=== PATIENT | female | born 1990 | race Caucasian/White ===

== ENCOUNTER 2025-02-11 19:47 | Inpatient (IN) | payer OTHER, MEDICAID, SELFPAY ==
--- OUTSIDE RECORDS SUMMARY | 2025-02-11 19:23 | XMS RPT_ITS | CCD ---
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 Name Role Phone Unavailable Primary Care Provider Unavailabl e NO FAMILY PHYSICIAN, 837 Primary Care Unavail able NO FAMILY PHYSICIAN, 837 Primary Care Unavail able NO FAMILY PHYSICIAN, 837 Primary Care Unavail able NO FAMILY PHYSICIAN, 837 Primary Care Unavail able NO FAMILY PHYSICIAN, 837 Primary Care Unavail able NO FAMILY PHYSICIAN, 837 Primary Care Unavail able NO FAMILY PHYSICIAN, 837 Primary Care Unavail able NO FAMILY PHYSICIAN, 837 Primary Care Unavail able NO FAMILY PHYSICIAN, 837 Primary Care Unavail able NO FAMILY PHYSICIAN, 837 Primary Care Unavail able NO FAMILY PHYSICIAN, 837 Primary Care Unavail able NO FAMILY PHYSICIAN, 837 Primary Care Unavail able NO FAMILY PHYSICIAN, 837 Primary Care Unavail able NO FAMILY PHYSICIAN, 837 Primary Care Unavail able Care Physician, No Primary Primary Care Unava ilable Disha Martines Admitting Unavail able Disha Martines Attending Unavail able Disha Martines Referring Unavail able SANA ALMODOVAR Attending Unavailable SANA ALMODOVAR Referring Unavailable DISHA PURCELL Attending Unavail able SELF Referring Unavailable CHRISTINA TAVAREZ Attending Unavailable SELF Referring Unavailable MAICOL ACUNA Attending Unavailable SANA ALMODOAVR Referring Unavailable Medications Current Medications Medication Drug Class(es) Dates Sig (Normalized) Sig (Original) Calcium Carbonate (2 sources) take 1 tablet by davon th once daily CALCIUM CARBONATE (CALCIUM 300 ORAL) Take 1 tablet by mouth once daily. Active MULTIVITAMIN/IRON/FOL IC ACID (MULTI-JOHN ORAL) (2 sources) take 1 tablet by davon th once daily MULTIVITAMIN/IRON/FO LIC ACID (MULTI-JOHN ORAL) Take 1 tablet by mouth once daily. Active Problems Active Problems Problem Classification Problem Date Documented Date Episodic/Chronic Anxiety disorders (1 source) Generalized anxiety disorder; Translations: [EDUARDO (generalized anxiety disorder)] Onset: 01-18-2025 Chronic Other complications of (1 source) Supervision of high risk due to social problems, third trimester; Translations: [Supervision of high risk due to social problems, third trimester (HCC)] Onset: 01-18-2025 Episodic Other and delivery including normal (1 source) Encounter for supervision of normal , unspecified, third trimester; Translations: [ with care elsewhere in third trimester ([facility])] Onset: 01-18-2025 Episodic Residual codes; unclassified (1 source) 38 weeks gestation of ; Translations: [38 weeks gestation of ([facility])] Onset: 02-07-2025 Episodic Residual codes; unclassified (1 source) 37 weeks gestation of ; Translations: [37 weeks gestation of ([facility])] Onset: 02-02-2025 Episodic Residual codes; unclassified (1 source) 36 weeks gestation of ; Translations: [36 weeks gestation of ([facility])] Onset: 01-15-2025 Episodic Residual codes; unclassified (1 source) Other specified postprocedural states; Translations: [History of cone biopsy of cervix] Onset: 01-15-2025 Episodic Sexually transmitted infections (not HIV or hepatitis) (1 source) Cervical high risk human papillomavirus (HPV) DNA test positive; Translations: [Human papillomavirus (HPV) type 18 DNA detected in cervical specimen] Onset: 01-15-2025 Episodic Past or Other Problems Problem Classification Problem Date Documented Da te Episodic/Chronic Residual codes; unclassified (2 sources) Kidney donor; Translations: [Kidney donors] Onset: 07-23-2013 07-23-2013 Episodic Results Test Name Value Interpretation Reference Range Facil courtney Blanc 02-09-2025 EVELYNE Telephone (SILVIANOGY) GIANNI BENTLEY ([id number]) 1990 F Date Time Provider Department 02/09/25 PLOTTS, RANDA OBGYWM During your visit today, we recorded the following information about you: Delores Leblanc RN 02/09/2025 10:12 AM Signed OB US reviewed. Results: There is unilateral left urinary tract dilation Recommendation is a follow up renal ultrasound. Please add report to patient's chart. Randa Valle APRN.Randa Kessler APRN.CNM 02/09/2025 11:11 AM Signed Yes per Paloma Marquez. FADY Banerjee Lindsey, RN 02/09/2025 11:20 AM Signed Patient previously notified of results at time of her appointment. Renal ultrasound will be done after baby is born. Delores Leblanc RN Allergies As of Date: 02/09/2025 (No Known Allergies) Date Reviewed: 02/07/2025 Reviewed by: Yareli Velazquez MA - Fully Assessed Reason for Visit: Results [95] Prescriptions as of 02/09/2025 - esomeprazole (NEXIUM) 20 mg capsule TAKE ONE CAPSULE BY MOUTH ONCE DAILY AT 6am - BABY ASPIRIN ORAL Take 2 tablets by mouth once daily. - calcium Carbonate 300 mg, 750mg, (TUMS) 300 mg (750 mg) chewable tablet Take 1 tablet by mouth as needed. - MULTIVITAMIN/IRON/FOL IC ACID (MULTI-JOHN ORAL) Take 1 tablet by mouth once daily. 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] 07/23/2013 Supervision of high risk due to socia*01/15/2025 History of cone biopsy of cervix [Z98.890] 01/15/2025 EDUARDO (generalized anxiety disorder) [F41.1] 01/15/2025 IBS (irritable bowel syndrome) [K58.9] 01/15/2025 36 weeks gestation of (HCC) [Z3A.36] 01/15/2025 with care elsewhere in [facility]*01/15/2025 Human papillomavirus (HPV) type 18 DNA detected*01/15/2025 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] 02/09/2025 02/09/2025 Pyelectasis of fetus on ultrasound (*02/09/2025 Encounter Status:Closed by DELORES LEBLANC on 02/09/25 Normal [facility] ROUTINE, GROUP B ST REPTOCOCCUS BY PCRon 01-15-2025 ROUTINE, GROUP B STREPTOCOCCUS BY PCR Not detected Normal [facility] Comment on above: Performed By: #### G BPCR #### [facility] CLIA [id number] [address] [place] [address] CNPNon 12-20-2024 CNPN Telephone (OBGYWM) GIANNI BENTLEY ([id number]) 1990 F Date Time Provider Department 12/20/24 SANA ALMODOVAR During your visit today, we recorded the following information about you: Estelita Torres RN 12/20/2024 12:21 PM Signed Records received from [facility] in [place]. Sent to medical records to scan into [employer] for upcoming NOB on 01/15. Allergies As of Date: 12/20/2024 (No Known Allergies) Date Reviewed: 07/13/2013 Reviewed by: Laura Prado Ma - Fully Assessed Reason for Visit: Received Outside Medical Records [4596] Prescriptions as of 12/20/2024 - MULTIVITAMIN/IRON/FOL IC ACID (MULTI-JOHN ORAL) Take 1 tablet by mouth once daily. - CALCIUM CARBONATE (CALCIUM 300 ORAL) Take 1 tablet by mouth once daily. 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] 07/23/2013 Encounter Status:Closed by ESTELITA TORRES on 12/20/24 Normal [facility] RPRon 11-29-2024 Reagin Ab RPR Ql (S) Non-Reactive Normal Non Reactive [facility] Comment on above: Order Comment: Order ed on Fin# [id number] Performed By: #### 1 [id number] #### [facility] [address] [place] [address] Shift Nurse Manager: Isac Chavarria MD AUTO DIFFon 11-27-2024 Baso Count 0.02 x1000 Normal 0.00-0.20 [facility] Comment on above: Performed By: #### 6 [id number], [id number], [id number] #### [facility] [address] [place] [address] 75567 Shift Nurse Manager: Isac Chavarria MD Basos % 0.2 % Normal [facility] Comment on above: Performed By: #### 6 [id number], [id number], [id number] #### [facility] [address] [place], [place] [phone] Shift Nurse Manager: Isac Chavarria MD Eos Count 0.10 x1000 Normal 0.00-0.50 [facility] Comment on above: Performed By: #### 6 [id number], [id number], [id number] #### [facility] [address] [place] [address] 20473 Shift Nurse Manager: Isac Chavarria MD Eosinophils/100 WBC (Bld) 0.8 % Normal [facility] Comment on above: Performed By: #### 6 [id number], [id number], [id number] #### [facility] [address] [place], [place] [phone] Shift Nurse Manager: Isac Chavarria MD Lymph Count 2.02 x1000 Normal 1.20-4.80 [facility] Comment on above: Performed By: #### 6 [id number], [id number], [id number] #### [facility] [address] [place] [address] 52045 Shift Nurse Manager: Isac Chavarria MD Lymphocytes/100 WBC (Bld) 17.6 % Normal [facility] Comment on above: Performed By: #### 6 145189, 048569, [id number] #### [facility] [address] [place] [address] 43998 Shift Nurse Manager: Isac Chavarria MD Lincoln Count 0.88 x1000 Normal 0.10-1.00 [facility] Comment on above: Performed By: #### 6 [id number], 665736, [id number] #### [facility] [address] [place] [address] 75811 Shift Nurse Manager: Isac Chavarria MD Monocytes/100 WBC (Bld) 7.6 % Normal [facility] Comment on above: Performed By: #### 6 514402, [id number], [id number] #### [facility] [address] [place] [address] 67881 Shift Nurse Manager: Isac Chavarria MD Neutrophil Count (ANC) 8.43 x1000 Normal 1.40-8.80 [facility] Comment on above: Performed By: #### 6 790208, 231003, [id number] #### [facility] [address] [place] [address] 42604 Shift Nurse Manager: Isac Chavarria MD Neutrophils/100 WBC (Bld) 73.7 % Normal [facility] Comment on above: Performed By: #### 6 [id number], 317026, [id number] #### [facility] [address] [place] [address] 57966 Shift Nurse Manager: Isac Chavarria MD GGLU 1HRPCon 11-27-2024 1 HR [place]a Gestational Glucose 67 mg/dL Low 120-135 [facility] Comment on above: Order Comment: Order ed on [facility]# [id number] Result Comment: Susan puncture should occur prior to sulfasalazine administration due to the potential for falsely depressed results. Venipuncture should occur prior to sulfapyridine administration due to the potential falsely elevated results. Baseline assay values before administration of sulfasalazine and sulfapyridine therapy would not be affected. Performed By: #### 6 [id number], [id number], [id number] #### [facility] [address] [place] [address] 16129 Shift Nurse Manager: Isac Chavarria MD HEMOon 11-27-2024 DIFF? No Normal [facility] Comment on above: Performed By: #### 6 573290, 226765, [id number] #### [facility] [address] [place] [address] 66226 Shift Nurse Manager: Isac Chavarria MD Erythrocyte distribution width (RBC) [Ratio] 13.4 % Normal 11.5-14.5 [facility] Comment on above: Performed By: #### 6 359317, 778071, [id number] #### [facility] [address] [place] [address] 31541 Shift Nurse Manager: Isac Chavarria MD Hematocrit (Bld) [Volume fraction] 37.3 % Normal 36.0-46.0 [facility] Comment on above: Performed By: #### 6 627881, 301110, [id number] #### [facility] [address] [place] [address] 78924 Shift Nurse Manager: Isac Chavarria MD Hemoglobin (Bld) [Mass/Vol] 12.5 g/dL Normal 12.0-16.0 [facility] Comment on above: Performed By: #### 6 480018, 893008, [id number] #### [facility] [address] [place] [address] 36583 Shift Nurse Manager: Isac Chavarria MD Instr WBC 11.4 Normal [facility] Comment on above: Performed By: #### 6 606596, 007954, 2294382 #### [facility] [address] [place] [address] 52952 Shift Nurse Manager: Isac Chavarria MD MCH (RBC) [Entitic mass] 31.5 pg Normal 27.0-34.0 [facility] Comment on above: Performed By: #### 6 892277, 183595, 7010151 #### [facility] [address] [place] [address] 90108 Shift Nurse Manager: Isac Chavarria MD MCHC (RBC) [Mass/Vol] 33.5 g/dL Normal 32.0-37.0 [facility] Comment on above: Performed By: #### 6 221049, 856731, 5846773 #### [facility] [address] [place] [address] 29456 Shift Nurse Manager: Isac Chavarria MD MCV (RBC) [Entitic vol] 94.3 fL Normal 80.0-100.0 [facility] Comment on above: Performed By: #### 6 840543, 494100, [id number] #### [facility] [address] [place] [address] 10403 Shift Nurse Manager: Isac Chavarria MD Nucleated RBC 0 /100WBC Normal [facility] Comment on above: Performed By: #### 6 586042, 315844, [id number] #### [facility] [address] [place] [address] 44887 Shift Nurse Manager: Isac Chavarria MD Platelet 342 x10 Normal 150-450 [facility] Comment on above: Performed By: #### 6 655105, 491908, [id number] #### [facility] [address] [place] [address] 90628 Shift Nurse Manager: Isac Chavarria MD Platelet mean volume (Bld) [Entitic vol] 8.7 fL Normal 7.4-10.4 [facility] Comment on above: Performed By: #### 6 752919, 572746, [id number] #### [facility] [address] [place] [address] 59800 Shift Nurse Manager: Isac Chavarria MD RBC 3.96 x10 Low 4.20-5.40 [facility] Comment on above: Result Comment: Note : RBC morphology is normal unless otherwise stated. Evaluation performed only if differential is requested. Performed By: #### 6 068168, 724679, [id number] #### [facility] [address] [place] [address] 14832 Shift Nurse Manager: Isac Chavarria MD WBC 11.4 x10 High 4.5-11.0 [facility] Comment on above: Performed By: #### 6 352245, 205570, [id number] #### [facility] [address] [place] [address] Shift Nurse Manager: MD Jayashree Wu 11-03-2024 CNPN Telephone (OBGYWM) GIANNI BENTLEY ([id number]) 1990 F Date Time Provider Department 11/03/24 SELF OBGYWM During your visit today, we recorded the following information about you: Radha Saunders 11/03/2024 12:51 PM Signed Patient is 6 months and would like to transfer her OB care of to [place]. She is currently a patient at [facility] in [place]. Please review and advise. Radha Saunders November 03, 2024 12:51 PM Claudia Fregoso RN 11/03/2024 1:19 PM Signed Call placed to patient to triage for new OB appt. Name and verified. Patient wishes to transfer to [facility] for OB care. NAEL? 02/15/2025 Gestational age? 25w1d Patient aware to sign up for My Chart so she can receive the residential care officer messages. What facility is she transferring from? [facility] in [place] When was her last office visit or will be the last visit with the current facility? 10/26 Does patient have records she is bringing with her? Patient will have the records faxed will need number. Any current pelvic pain/vaginal bleeding or any medical concerns that affect the ? no Has patient tested + for GDM or HTN with this ? Patient not had glucose yet, BP WNL Have you had your anatomy scan? WNL apart from small amount of extra fluid around kidney which she was told was common with boys. Which office/provider would the patient like to establish in? [facility] Will route this encounter to the desired office. Delores Leblanc RN 11/03/2024 2:02 PM Signed PSS: Please contact patient to schedule New OB visit. Will need to be scheduled with base loader or doctor. Thank you. DANIELLE Dumas Jennifer, RN 11/09/2024 1:52 PM Signed Patient has appt - closing encounter. 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 - CALCIUM CARBONATE (CALCIUM 300 ORAL) Take 1 tablet by mouth once daily. 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 View: Sufficient ========= Pedro . Number of fetuses: 1 Dating ====== Date Details Gest. age NAEL LMP 05/05/2024 21 w + 5 d 02/09/2025 U/S 10/04/2024 based upon AC, BPD, Femur, HC 21 w + 2 d 02/12/2025 Assigned dating based on ultrasound (CRL), selected on 08/08/2024 20 w + 6 d 02/15/2025 General Evaluation Cardiac activity present. FHR 152 bpm. movements: visualized. Presentation: Variable mostly Breech Placenta: Placental site: posterior G1 Umbilical cord: Cord vessels: 3 vessel cord, normal insertion. Insertion site: normal insertion Amniotic fluid: Amount of AF: normal amount. MVP 4.8 cm. IMELDA 17.9 cm. Q1 4.6 cm, Q2 4.8 cm, Q3 4.4 cm, Q4 4.2 cm Biometry BPD 51.3 mm 21w 4d 76% Hadlock OFD 67.6 mm 22w 5d 95% Tye HC 190.6 mm 21w 2d 62% Hadlock Cerebellum tr 22.4 mm 81% [place] Nuchal fold 2.7 mm AC 170.1 mm 22w 0d 79% Hadlock Femur 33.5 mm 20w 3d 29% Hadlock HC / AC 1.12 26% Hadlock Weight Calculation: EFW 416 g 21w 1d 70% Hadlock EFW (lb,oz) 0 lb 15 oz EFW by Hadlock ([id number]) Head / Face / Neck Biometry: Cephalic index 0.76 21% Nicolaides Public Relations Studies Director 4.1 mm CM 2.9 mm 2% Nicolaides Extremities / Bony Struc Biometry: FL / BPD 0.65 5% Hadlock FL / HC 0.18 13% Hadlock FL / AC 0.20 3% Hadlock Anatomy Abdomen Right kidney: 4 mm , pyelectasis Left kidney: 6 mm , pyelectasis The following structures appear normal: Head / Neck Cranium. Lateral ventricles. Choroid plexus. Midline falx. Cavum septi pellucidi. Cerebellum. Cisterna magna. Thalami. Neck. Face Lips. Profile. Nose. Palate. Orbits. Heart / Thorax 4-chamber view. RVOT view. LVOT view. 3-vessel view. 9-swdtju-bgghmkx view. Situs. Aortic arch view. Ductal arch view. Cardiac position. Cardiac axis. Cardiac rhythm. Diaphragm. Abdomen Abdom. wall. Cord insertion. Stomach. Bladder. Right renal artery. Left renal artery. Genitals. Spine Cervical spine. Thoracic spine. Lumbar spine. Sacral spine. Extremities / Skeleton Arms. Right arm. Right upper arm. Right forearm. Right hand. Left arm. Left upper arm. Left forearm. Left hand. Legs. Right leg. Right upper leg. Right lower leg. Left leg. Left upper leg. Left lower leg. The following structures were visualized: Extremities / Skeleton Right foot. Left foot. sex: male. Maternal Structures Cervix Visualized Approach - Transvaginal: Cervical length 40.9 mm IMPRESSION: There is a single live intrauterine gestation with appropriate interval growth. biometry is appropriate for gestational age. There is mild dilatation of the renal collecting system bilaterally greater on the left 6 mm. This can be followed up later in . Other Visualized anatomic structures as described above show no evidence of major anomalies; however, ultrasound imaging is inherently limited in exclusion of all anomalies. Electronically signed by: Selena Tarango MD 10/05/2024 05:21 PM EDT [facility] Comment on above: Order Comment: Order ed on [facility]# [id number] Result Comment: Tech nologist: DM Dictated By: SELENA TARANGO MD Signed By: SELEAN TARANGO MD Signed Out: 10/05/24 17:21:27 US GRAVID TV ECHO OFFICE ARPITA Don 09-08-2024 US GRAVID TV ECHO OFFICE READ TV U/s Indication: Cervical Length Exam Date: 08/31/2024 Transabdominal exam LMP: 05/05/2024 Gestational Age: 16w 6d NAEL: 02/09/2025 IUP confirmed @ 16 wks FHR 150 + Fm CL reassuring at 3.93cm Pedro Intrauterine with cardiac activity present Reassuring Cervical Length Anatomic detail is extremely limited at this early gestational age no gross abnormalities were noted on examination [facility] Comment on above: Order Comment: Order ed on Fin# [id number] Result Comment: Tech nologist: DM Dictated By: TAMRA NELSON Signed By: TAMRA NELSON Transcribed: 09.08.2024 16:00 Signed Out: 09/08/24 16:00:22 Discharge Educationon 2024 Discharge Education [facility] THIN PREP IMAGE SEND OUTon 0 08-23-2024 THINPREP TIS PAP SEE COMMENT [facility] Comment on above: Order Comment: Order ed on Fin# [id number] Result Comment: THIN PREP TIS PAP Lab: [facility] CLINICAL INFORMATION: None given LMP: None given prev. Pap: None given prev. Bx: None given SOURCE: None given STATEMENT OF ADEQUACY: Satisfactory for evaluation. Endocervical/transformation zone component absent. INTERPRETATION/RESULT: Cytology Results: Negative for intraepithelial lesion or malignancy. COMMENT: This Pap test has been evaluated with computer assisted technology. [employer] COUNSELOR: YOON RUBIO(ASCP) CT Screening Location: [place] [address] PATHOLOGIST: Florence Rodriguez M.D. Board Certified in Anatomic and Clinical Pathology (electronic signature) For questions regarding this report call Anatomic Pathology at [phone] For questions contact Anatomic Pathology Client Services at [phone] EXPLANATORY NOTE: The Pap is a screening test for cervical cancer. It is not a diagnostic test and is subject to false negative and false positive results. It is most reliable when a satisfactory sample, regularly obtained, is submitted with relevant clinical findings and history, and when the Pap result is evaluated along with historic and current clinical information. PERFORMING SITE: [facility] [address] [address] Telesales Manager: ALBERTO ESCAMILLA MD, CLIA: [id number] Performed By: #### 1 [id number] #### [facility] [address] [place] [address] 44130 Shift Nurse Manager: Isac Chavarria MD Hernan 08-22-2024 Genprobe Chlamydia Negative Normal [facility] Comment on above: Order Comment: Order ed on Fin# [id number] Result Comment: This Chlamydia assay is being performed via a second generation NAAT that utilizes target capture, fleet maintenance foreman mediated amplification and dual kenetic assay technologies. Performed By: #### 1 [id number], [id number] #### [facility] [address] [place] [address] 96504 Shift Nurse Manager: Isac Chavarria MD GP GCon 08-22-2024 Genprobe GC Negative Normal [facility] Comment on above: Order Comment: Order ed on Fin# [id number] Result Comment: This Gonorrhoea assay is being performed via a second generation NAAT that utilizes target capture, fleet maintenance foreman mediated amplification and dual kenetic assay technologies. Performed By: #### 1 88926, [id number], [id number] #### [facility] [address] [place] [address] [phone] Shift Nurse Manager: Isac Chavarria MD GP Trichomonason 08-22-2024 GP Trichomonas Negative Normal Negative [facility] Comment on above: Order Comment: Order ed on Fin# [id number] Result Comment: This Trichomonas assay is performed via a second generation NAAT that utilizes target capture, fleet maintenance foreman mediated amplification and dual kenetic assay technologies. Performed By: #### 1 [id number], [id number], [id number] #### [facility] [address] [place] [address] [phone] Shift Nurse Manager: Isac Chavarria MD RPRon 08-21-2024 Reagin Ab RPR Ql (S) Non-Reactive Normal Non Reactive [facility] [facility] Comment on above: Order Comment: Order ed on Fin# [id number] Performed By: #### 1 [id number] #### [facility] Laboratory Services [address] [place] [address] Shift Nurse Manager: Isac Chavarria MD C URINEon 08-19-2024 C URINE [facility] Services [address] [place] [phone] Name: GIANNI BENTLEY : 1990 Admitting Provider: Gender Female [facility] [id number] : Number: Locatio Lab Svc. n: Admit 08/18/2024 Date: Discharge 08/18/2024 Microbiology Date: PROCEDURE: C URINE [] SOURCE: CLEAN CATCH BODY SITE: COLLECTED DATE/TIME: 08/18/2024 12:00 EDT RECEIVED DATE/TIME: 08/18/2024 18:31 EDT START DATE/TIME: 08/18/2024 18:31 EDT FREE TEXT SOURCE: ORDERING PHYSICIAN: DORIS POOLE CNP FINAL REPORTS Final Report [] Verified Date/Time: 08/19/2024 13:52 EDT No significant growth. ____ L=Low, H= High, *= Abnormal, C=Critical, f=Footnote, c=Corrected, i=Interp Data Name: GIANNI BENTLEY Print 08/20/2024 19:21 EDT Date/Time: Normal [facility] Comment on above: Performed By: #### 1 [id number] #### [facility] Services [address] [place] [address] Shift Nurse Manager: Isac Chavarria MD ABORHon 08-18-2024 ABORH CK Interp Positive [facility] Comment on above: Order Comment: Order ed on Fin# [id number] Performed By: #### 1 [id number] #### [facility] Services [address] [place] [address] Shift Nurse Manager: Isac Chavarria MD ABORH Interpretation Positive Normal [facility] Comment on above: Order Comment: Order ed on Fin# [id number] Performed By: #### 1 [id number] #### [facility] Services [address] [place], [place] [id number] Shift Nurse Manager: Isac Chavarria MD Anti-A recheck 0 Normal [facility] Comment on above: Order Comment: Order ed on Fin# [id number] Performed By: #### 1 [id number] #### [facility] [address] [place] [address] Shift Nurse Manager: Isac Chavarria MD Anti-B recheck 4+ Normal [facility] Comment on above: Order Comment: Order ed on Fin# [id number] Performed By: #### 1 [id number] #### [facility] [address] [place] [address] Shift Nurse Manager: Isac Chavarria MD Anti-D recheck 3+ Normal [facility] Comment on above: Order Comment: Order ed on Fin# [id number] Performed By: #### 1 [id number] #### [facility] [address] [place] [address] Shift Nurse Manager: Isac Chavarria MD Patient History Check No Previous Hx Normal [facility] Comment on above: Order Comment: Order ed on Fin# [id number] Performed By: #### 1 [id number] #### [facility] [address] [place] [address] Shift Nurse Manager: Isac Chavarria MD VS 0.8% a cells 4+ [facility] Comment on above: Order Comment: Order ed on Fin# [id number] Performed By: #### 1 [id number] #### [facility] [address] [place] [address] Shift Nurse Manager: Isac Chavarria MD VS 0.8% b cells 0 [facility] Comment on above: Order Comment: Order ed on Fin# [id number] Performed By: #### 1 [id number] #### [facility] [address] [place] [address] Shift Nurse Manager: Isac Chavarria MD VS Anti-A Unit 0 [facility] Comment on above: Order Comment: Order ed on Fin# [id number] Performed By: #### 1 [id number] #### [facility] [address] [place] [address] Shift Nurse Manager: Isac Chavarria MD VS Anti-B Unit 4+ Normal [facility] Comment on above: Order Comment: Order ed on Fin# [id number] Performed By: #### 1 [id number] #### [facility] [address] [place] [address] Shift Nurse Manager: Isac Chavarria MD VS Anti-D Unit 4+ Normal [facility] Comment on above: Order Comment: Order ed on Fin# [id number] Performed By: #### 1 [id number] #### [facility] [address] [place] [address] Shift Nurse Manager: Isac Chavarria MD ABSCon 08-18-2024 ABSC Final Interp Negative [facility] Comment on above: Order Comment: Order ed on Fin# [id number] Performed By: #### 1 [id number] #### [facility] [address] [place] [address] Shift Nurse Manager: Isac Chavarria MD Pt Hx check done? Yes [facility] Comment on above: Order Comment: Order ed on Fin# [id number] Performed By: #### 1 [id number] #### [facility] [address] [place] [address] Shift Nurse Manager: Isac Chavarria MD VS SCI Gel 0 [facility] Comment on above: Order Comment: Order ed on Fin# [id number] Performed By: #### 1 [id number] #### [facility] [address] [place] [address] Shift Nurse Manager: Isac Chavarria MD VS SCII Gel 0 [facility] Comment on above: Order Comment: Order ed on Fin# [id number] Performed By: #### 1 [id number] #### [facility] [address] [place] [address] Shift Nurse Manager: Isac Chavarria MD AUTO DIFFon 08-18-2024 Baso Count 0.03 x1000 Normal 0.00-0.20 [facility] Comment on above: Performed By: #### 1 [id number] #### [facility] [address] [place] [address] Shift Nurse Manager: Isac Chavarria MD Basos % 0.3 % Normal [facility] Comment on above: Performed By: #### 1 [id number] #### [facility] [address] [place] [address] Shift Nurse Manager: Isac Chavarria MD Eos Count 0.05 x1000 Normal 0.00-0.50 [facility] Comment on above: Performed By: #### 1 [id number] #### [facility] [address] [place], [place] [phone] Shift Nurse Manager: Isac Chavarria MD Eosinophils/100 WBC (Bld) 0.4 % Normal [facility] Comment on above: Performed By: #### 1 [id number] #### [facility] [address] [place] [address] Shift Nurse Manager: Isac Chavarria MD Lymph Count 2.88 x1000 Normal 1.20-4.80 [facility] Comment on above: Performed By: #### 1 [id number] #### [facility] [address] [place], [place] [phone] Shift Nurse Manager: Isac Chavarria MD Lymphocytes/100 WBC (Bld) 26.9 % Normal [facility] Comment on above: Performed By: #### 1 [id number] #### [facility] [address] [place] [address] Shift Nurse Manager: Isac Chavarria MD Lincoln Count 0.70 x1000 Normal 0.10-1.00 [facility] Comment on above: Performed By: #### 1 [id number] #### [facility] [address] [place] [address] Shift Nurse Manager: Isac Chavarria MD Monocytes/100 WBC (Bld) 6.6 % Normal [facility] Comment on above: Performed By: #### 1 [id number] #### [facility] [address] [place] [address] Shift Nurse Manager: Isac Chavarria MD Neutrophil Count (ANC) 7.05 x1000 Normal 1.40-8.80 [facility] Comment on above: Performed By: #### 1 [id number] #### [facility] [address] [place] [address] Shift Nurse Manager: Isac Chavarria MD Neutrophils/100 WBC (Bld) 65.8 % Normal [facility] Comment on above: Performed By: #### 1 [id number] #### [facility] [address] [place] [address] Shift Nurse Manager: Isac Chavarria MD Antepartum Intake-Texton Antepartum Intake-Text Antepartum Intake Entered On: 08/18/2024 11:01 EDT Performed On: 08/18/2024 10:51 EDT by Asia Sullivan Summary Chief Complaint : Here for 14wk and 1 day OB talk. LMP: 05/05/24 Last Menstrual Period : 05/05/2024 EST Menstrual Status : Due to Bladder Control Issues? : No Urine Leakage? : No Presence or absence of urinary incontinence assessed : Yes CPT-II Medication list doc'd in medical record : Yes Influenza immunization administered or previously received : No Pneumococcal vaccine administered or previously received : No Asia Sullivan - 08/18/2024 10:51 EDT Measurements Ht/Wt Measurement Refused by Patient? : No Weight Measured : 76.8 kg(Converted to: 169 lb 5 oz, 169.315 lb) Height/Length Measured : 160 cm(Converted to: 5 ft 3 in, 62.99 in) Body Mass Index Measured : 30 kg/m2 Body Mass Index documented : Yes Weight Measured - lbs : 169 lb(Converted to: 169 lb 0 oz, 77 kg) Height/Length Measured - in : 63 in(Converted to: 5 ft 3 in, 160 cm) Body Mass Index Measured South African : 29.93 kg/m2 BSA South African : 1.84 m2 Pre- Weight : 76.8 kg Pre- Weight - lb : 169 lb Asia Sullivan - 08/18/2024 10:51 EDT Vitals Require BP : Yes Systolic Blood Pressure : 128 mmHg (HI) Diastolic Blood Pressure : 74 mmHg Mean Arterial Pressure : 92 mmHg Last Systolic BP : less than 130 mmHg Last Diastolic BP : less than 80 mmHg Pain Present : No actual or suspected pain Pain : 0 Pain severity quantified : No pain present Asia Sullivan - 08/18/2024 10:51 EDT Depression Screening Is patient currently : None of the Below Feeling Down, Depressed, Hopeless : Not at all Little Interest - Pleasure in Activities : Not at all Initial Depression Screen Score : 0 Depression Screening Score 0 : No Asia Sullivan - 08/18/2024 10:51 EDT Social Determinants of Health (SDOH) - screen 1. Is the patient agreeable to providing responses to the SDOH Screening Assessment? : No Asia Sullivan - 08/18/2024 10:51 EDT Falls Risk Assessment Is the patient ambulatory (mobile) : Yes Have you had 2 or more falls in the past year : No Have you had a fall within the past year that has caused an injury : No Asia Sullivan - 08/18/2024 10:51 EDT Infection Screening Travel outside [place] within past 21 days : No Positive COVID test in the last 10 days? : No Exposure to and/or close contact with a person who has a laboratory-confirmed COVID test within the last 48 hours. : No Asia Sullivan - 08/18/2024 10:51 EDT History History (As Of: 08/18/2024 11:27:56 EDT) - 1, Para Fullterm - , Para - , Abortions - , Para Living - Additional Information Planned/Unplanned : Planned On Hormonal Contraception within 2 months of LMP : No at Conception : No Resulted from Infertility Treatment : No Father of Baby : Stanley Blank Asia Sullivan - 08/18/2024 10:51 EDT Review of Systems OB OB Review of Systems : No cramping, No Bleeding, No pelvic pain DORIS POOLE CNP - 08/18/2024 11:21 EDT Problem History (As Of: 08/18/2024 11:27:56 EDT) Problems(Active) Anxiety (SNOMED CT :64074987 ) Name of Problem: Anxiety ; Recorder: Quiana Rainey; Confirmation: Confirmed ; Classification: Medical ; Code: [id number] ; Contributor System: PowerChart ; Last Updated: 08/08/2024 14:39 EDT ; Life Cycle Date: 08/08/2024 ; Life Cycle Status: Active ; Vocabulary: SNOMED CT Encounter for supervision of normal first in first trimester (SNOMED CT :568175342 ) Name of Problem: Encounter for supervision of normal first in first trimester ; Recorder: Asia Sullivan; Confirmation: Confirmed ; Classification: Medical ; Code: 489247706 ; Contributor System: PowerChart ; Last Updated: 08/11/2024 15:30 EDT ; Life Cycle Date: 08/11/2024 ; Life Cycle Status: Active ; Vocabulary: SNOMED CT History of cone biopsy of cervix complicating (SNOMED CT :10972645 ) Name of Problem: History of cone biopsy of cervix complicating ; Recorder: Asia Sullivan; Confirmation: Confirmed ; Classification: Medical ; Code: [id number] ; Contributor System: PowerChart ; Last Updated: 08/11/2024 15:31 EDT ; Life Cycle Date: 08/11/2024 ; Life Cycle Status: Active ; Vocabulary: SNOMED CT Pap smear for cervical cancer screening (SNOMED CT :070878085 ) Name of Problem: Pap smear for cervical cancer screening ; Recorder: DORIS POOLE CNP; Confirmation: Confirmed ; Classification: Medical ; Code: [id number] ; Contributor System: PowerChart ; Last Updated: 08/14/2024 07:19 EDT ; Life Cycle Date: 08/14/2024 ; Life Cycle Status: Active ; Responsible Provider: DORIS POOLE CNP; Vocabulary: SNOMED CT (SNOMED CT :625585181 ) Name of Problem: ; Onset Date: 05/05/2024 ; Recorder: Asia Sullivan; Confirmation: Confirmed ; Classification: Medical ; Code: [id number] ; Last Updated: 08/11/2024 15: (more content not included)... Normal [facility] 08-18-2024 DIFF? No Normal [facility] Comment on above: Performed By: #### 1 , [id number] #### [facility] [address] [place] [address] Shift Nurse Manager: Isac Chavarria MD Erythrocyte distribution width (RBC) [Ratio] 12.8 % Normal 11.5-14.5 [facility] Comment on above: Performed By: #### 1 , [id number] #### [facility] [address] [place] [address] Shift Nurse Manager: Isac Chavarria MD Hematocrit (Bld) [Volume fraction] 38.2 % Normal 36.0-46.0 [facility] Comment on above: Performed By: #### 1 , [id number] #### [facility] [address] [place], [place] [address] Shift Nurse Manager: Isac Chavarria MD Hemoglobin (Bld) [Mass/Vol] 13.2 g/dL Normal 12.0-16.0 [facility] Comment on above: Performed By: #### 1 , [id number] #### [facility] [address] [place] [address]007 Shift Nurse Manager: Isac Chavarria MD Instr WBC 10.7 Normal [facility] Comment on above: Performed By: #### 1 , [id number] #### [facility] [address] [place], [place] [address] Shift Nurse Manager: Isac Chavarria MD MCH (RBC) [Entitic mass] 31.4 pg Normal 27.0-34.0 [facility] Comment on above: Performed By: #### 1 , [id number] #### [facility] [address] [place] [address]20 Shift Nurse Manager: Isac Chavarria MD MCHC (RBC) [Mass/Vol] 34.5 g/dL Normal 32.0-37.0 [facility] Comment on above: Performed By: #### 1 , [id number] #### [facility] [address] [place] [address] Shift Nurse Manager: Isac Chavarria MD MCV (RBC) [Entitic vol] 91.0 fL Normal 80.0-100.0 [facility] Comment on above: Performed By: #### 1 , [id number] #### [facility] [address] [place] [address]13 Shift Nurse Manager: Isac Chavarria MD Nucleated RBC 0 /100WBC Normal [facility] Comment on above: Performed By: #### 1 , [id number] #### [facility] [address] [place] [address]3850 Shift Nurse Manager: Isac Chavarria MD Platelet 302 x10 Normal 150-450 [facility] Comment on above: Performed By: #### 1 , [id number] #### [facility] [address] [place] [address] 69993 Shift Nurse Manager: Isac Chavarria MD Platelet mean volume (Bld) [Entitic vol] 9.1 fL Normal 7.4-10.4 [facility] Comment on above: Performed By: #### 1 , [id number] #### [facility] [address] [place] [address]604 Shift Nurse Manager: Isac Chavarria MD RBC 4.19 x10 Low 4.20-5.40 [facility] Comment on above: Result Comment: Note : RBC morphology is normal unless otherwise stated. Evaluation performed only if differential is requested. Performed By: #### 1 , [id number] #### [facility] [address] [place] [address]256 Shift Nurse Manager: Isac Chavarria MD WBC 10.7 x10 Normal 4.5-11.0 [facility] Comment on above: Performed By: #### 1 , [id number] #### [facility] [address] [place] [address]898 Shift Nurse Manager: Isac Chavarria MD HEP B AGon 08-18-2024 Hepatitis B Surface Antigen Non-Reactive Normal [facility] Comment on above: Order Comment: Order ed on Fin# [id number] Result Comment: Leonie ents taking biotin supplements may have false negative results with this assay Performed By: #### 1 [id number] #### [facility] [address] [place] [address] Shift Nurse Manager: Isac Chavarria MD HIV 1O2on 08-18-2024 HIV Panel 1&2 Non-Reactive Normal [facility] Comment on above: Order Comment: Order ed on Fin# [id number] Performed By: #### 1 [id number] #### [facility] [address] [place] [address]79 Shift Nurse Manager: Isac Chavarria MD RUBELLA SCREENon 08-18-2024 Rubella Serology Immune Normal [facility] Comment on above: Order Comment: Order ed on Fin# [id number] Performed By: #### 1 [id number] #### [facility] [address] [place] [address]256 Shift Nurse Manager: Isac Chavarria MD [facility] Physician Progress No girish 08-15-2024 [facility] Physician Progress Note GIANNI BENTLEY :1990 Registration Date:08/08/2024 Assessment/Plan This Visit Diagnosis Encounter to determine viability of O36.80X0 I [address] Dr. Covarrubias who agreed to deliver her in [place] if she chooses to stay in our care. I notified her 08/15/24-she is going to speak with her partner. 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 Hx of Cone Bx, has had a little bit of cramping but no bleeding feeling little anxious History of Present Illness Gianni is a 34 year old G1 who presents for ultrasound to evaluate for . She has had some cramping. No nausea. She wants to deliver in [place]. We discussed cervical lengths due to her history of CKC. She is otherwise healthy. Her EDC should be 02/15/25 based on the ultrasound and dating error. Physical Exam Vitals & Measurements BP: 124/ 90 HT: 160 cm WT: 76.8 kg BMI: 30 LMP: 05/05/2024 00:00 EST Depression Screening Scores Initial Depression Screen Score: 0 (08/08/24 14:35:00) Fall Risk Assessment Is the patient ambulatory (mobile): Yes (08/08/24 14:35:00) Have you had a fall within the past: No (08/08/24 14:35:00) Have you had 2 or more falls in the past: No (08/08/24 14:35:00) The vital signs were reviewed and her blood pressure was mildly elevated. 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 Menstrual History Menstrual StatusDue to Last Menstrual Wuicdu9605/05/2024 StatusConfirmed positive SOCIAL SCIENCE ANALYST Screening Date of Last Pap Smear10/2023 done in [place] Last Pap Result, Pt StatedPositive for abnormal cells Last Pap Result CommentLGSIL Hx of [place] III [facility] - Hx of [place] III, 10/31/2022 OB History History (0,0,0,0) No previous pregnancies history have been recorded Problem List/Past Medical History Ongoing Anxiety Encounter for supervision of normal first in first trimester History of cone biopsy of cervix complicating Pap smear for cervical cancer screening Procedure/Surgical History [facility] - Hx of [place] III w/Neg Margins: 10/31/22 [place] teeth Medications multivitamin, (PIER RUNNER-PNV-DHA), ORAL, DAILY Allergies No Known Medication Allergies Social History Alcohol Use:Past Sexual Sexually active:Yes Other contraceptive use: Substance Abuse - Denies Substance Abuse Tobacco Use:Former smoker, quit more than 30 days ago Family History Family history is negative Radiology Results US GRAVID TV ECHO OFFICE READ 08/08/2024 14:50 EDT (08/08/2024 14:36 EDT US GRAVID TV ECHO OFFICE READ) * Final Report * Reason For Exam VIABILITY Report Indication: Viability A transvaginal ultrasound was performed. LMP 05/05/24 13 weeks 4 days February 09, 2025 U/S 08/08/24 12 weeks 5 days February 15, 2025 There was a normal appearing gestational sac. The pole measured 6.4 cm or 12 weeks 5 days. The heart rate was 164 beats per minute. The cervical length was 3.4 cm. The right ovary appeared normal and measured 2.2 by 2.4 by 2.9 cm. The left ovary appeared normal and measured 1.9 by 1.6 by 1.4 cm. Impression: Viable pedro intrauterine at 12 weeks 5 days. The estimated date of confinement should be February 15, 2025. The anatomy was not assessed due to the early gestational age. Signature Line Technologist: STEPHON Dictated By: ZEE JOHNSTON MD, FACOG Signed By: ZEE JOHNSTON MD, FACOG Transcribed: 08.08.2024 14:50 Signed Out: 08/08/24 14:50:53 [1] [1] US GRAVID TV ECHO OFFICE READ; ZEE JOHNSTON MD, FACOG 08/08/2024 14:36 EDT Normal [facility] US GRAVID TV ECHO OFFICE ARPITA Zeyad 08-08-2024 US GRAVID TV ECHO OFFICE READ Indication: Viability A transvaginal ultrasound was performed. LMP 05/05/24 13 weeks 4 days February 09, 2025 U/S 08/08/24 12 weeks 5 days February 15, 2025 There was a normal appearing gestational sac. The pole measured 6.4 cm or 12 weeks 5 days. The heart rate was 164 beats per minute. The cervical length was 3.4 cm. The right ovary appeared normal and measured 2.2 by 2.4 by 2.9 cm. The left ovary appeared normal and measured 1.9 by 1.6 by 1.4 cm. Impression: Viable pedro intrauterine at 12 weeks 5 days. The estimated date of confinement should be February 15, 2025. The anatomy was not assessed due to the early gestational age. Normal [facility] Comment on above: Order Comment: Order ed on Fin# [id number] Result Comment: Tech nologist: STEPHON Dictated By: ZEE JOHNSOTN MD, FACOG Signed By: ZEE JOHNSTON MD, FACOG Transcribed: 08.08.2024 14:50 Signed Out: 08/08/24 14:50:53 Encounters Encounter Date Encounter Type Care Provider Facility Start: 02-15-2025 ambulatory No Primary Car e Physician Facility:[facility] Start: 02-07-2025 End: 02-07-2025 ambulatory SANA ALMODOVAR Facility:[facility] Start: 02-02-2025 End: 02-02-2025 ambulatory CHRISTINA DAYSI Facility:[facility] Start: 01-26-2025 End: 01-26-2025 ambulatory MAICOL ACUNA Facility:[facility] Start: 01-15-2025 End: 01-15-2025 ambulatory SANA ALMODOVAR Facility:[facility] Start: 01-04-2025 End: 01-04-2025 ambulatory 837 NO FAMILY PHYSICIAN Facility:[facility] Start: 12-21-2024 End: 12-21-2024 ambulatory 837 NO FAMILY PHYSICIAN Facility:[facility] Start: 12-20-2024 End: 12-20-2024 Telephone encounter Sana Scooby SHRESTHA Work Phone: OB/Gynecology Comment on above: Received Outside Med ical Records Start: 12-07-2024 End: 12-07-2024 ambulatory 837 NO FAMILY PHYSICIAN Facility:[facility] Start: 11-27-2024 End: 11-27-2024 ambulatory 837 NO FAMILY PHYSICIAN Facility:[id number] Start: 11-27-2024 End: 11-27-2024 ambulatory 837 NO FAMILY PHYSICIAN Facility:[facility] Start: 11-03-2024 End: 11-09-2024 Telephone encounter Self OB/Gynecology Comment on above: Energy Control Officer - O ther (Initial OB RN CC pool/) Start: 10-26-2024 End: 10-26-2024 ambulatory 837 NO FAMILY PHYSICIAN Facility:[facility] Start: 10-04-2024 End: 10-04-2024 ambulatory 837 NO FAMILY PHYSICIAN Facility:[facility] Start: 09-14-2024 End: 09-14-2024 ambulatory 837 NO FAMILY PHYSICIAN Facility:[facility] Start: 08-31-2024 End: 08-31-2024 ambulatory 837 NO FAMILY PHYSICIAN Facility:[facility] Start: 08-18-2024 End: 08-18-2024 ambulatory 837 NO FAMILY PHYSICIAN Facility:[id number] Start: 08-18-2024 End: 08-18-2024 ambulatory 837 NO FAMILY PHYSICIAN Facility:[facility] Start: 08-18-2024 End: 08-18-2024 ambulatory 837 NO FAMILY PHYSICIAN Facility:[id number] Start: 08-08-2024 End: 08-08-2024 ambulatory 837 NO FAMILY PHYSICIAN Facility:[facility] Plan of Treatment Date Care Activity Detail Author Start: 05-22-2032 Urine microalbumin profile DTa P,Tdap,Td Vaccine (2 - Td or Tdap) [facility] Start: 01-15-2025 End: 01-15-2025 Patient encounter procedure 01/15/2025 8:45 AM EDT Initial Office Visit OB/Gynecology [address] [place], [place] [id number] Sana Almodovar APRN.CN [address] [place] [address] ob lmp 1/17 being seen in [place] until jan 04 when pt will be 34 weeks OB/Gynecology Comment on above: ob lmp 1/17 being se en in [place] until jan 04 when pt will be 34 weeks Start: 12-18-2024 Influenza vaccination Influenza Vacc ine (#1) [facility] Start: 07-05-2018 HPV Vaccine (1 - 3-d ose SCDM series) HPV Vaccine (1 - 3-dose SCDM series) [facility] Start: 07-05-2012 Screening for malign ant neoplasm of cervix Cervical Cancer Screening [facility] Start: 07-05-2010 Hepatitis B Vaccine (1 of 3 - 19+ 3-dose series) Hepatitis B Vaccine (1 of 3 - 19+ 3-dose series) [facility] Start: 07-05-2009 Anxiety Screening Anxiety Screening [facility] Start: 07-05-2009 Depression Screening Depression Scre ening [facility] Immunizations Immunization Date Immunization Notes Care Provider Fa cility 01-01-2023 influenza virus vacc ine, unspecified formulation [facility] Payers Date Payer Category Payer Self-pay 2025 Unknown [id number] 2024 Private Health Insurance [place] [id number] 2024 Unknown [id number] 2013 Blue Cross Blue [facility] BLUE CARD PPO OOS [id number] 1991 Unknown [id number] .159 1991 Unknown [id number] 2.16840.1.264076.3.579.2 .159 1991 Unknown [id number] 2.16840.1.744881.3.579.2 .159 1991 Unknown [id number] 2.16840.1.177887.3.579.2 .159 1991 Unknown [id number] 2.16.840.1.706493.3.579.2 .159 1991 Unknown [id number] 2.16.840.1.306724.3.579.2 .159 1991 Unknown [id number] 2.16.840.1.680762.3.579.2 .159 1991 Unknown [id number] 2.16.840.1.844599.3.579.2 .159 1991 Unknown [id number] 2.16.840.1.993337.3.579.2 .159 1991 Unknown [id number] 2.16.840.1.920967.3.579.2 .159 1991 Unknown [id number] 2.16.840.1.996676.3.579.2 .159 1991 Unknown [id number] 2.16840.1.342725.3.579.2 .159 1991 Unknown [id number] 2.16.840.1.740045.3.579.2 .159 1991 Unknown [id number] 2.16.840.1.317217.3.579.2 .159 Unknown [id number] Unknown [id number] [id number] .462 Social History Date Type Detail Facility Start: 07-13-2013 [facility] End: 04-19-2010 History of tobacco use Current smoker [facility] End: 04-19-2010 History of tobacco use Cigarette Smoker [facility] Start: 07-13-2013 Tobacco use and exposure Smoke less tobacco non-user [facility] Start: 07-13-2013 Alcoholic beverage intake Not Asked [facility] Start: 07-13-2013 Tobacco Comment 1-2 per day [facility] Start: 1990 Sex assigned at Not on file [facility] Gender identity Not on file [facility] Start: 04-25-2013 Sex Female [facility] Functional Status Date Assessment Result Facility 07-13-2013 Are you deaf, or do you have serious difficulty hearing No 07/13/2013 1:20 PM EDT Laura Prado, PCNA No [facility] 07-13-2013 Are you blind, or do you have serious difficulty seeing, even when wearing glasses No 07/13/2013 1:20 PM EDT Laura Prado, PCNA No [facility] 07-13-2013 Do you have serious difficulty walking or climbing stairs No 07/13/2013 1:20 PM EDT Laura Prado, PCNA No [facility] 07-13-2013 Do you have difficul ty dressing or bathing No 07/13/2013 1:20 PM EDT Luara Prado, PCNA No [facility] 07-13-2013 Because of a physica l, mental, or emotional condition, do you have difficulty doing errands alone such as visiting a physician's office or shopping No 07/13/2013 1:20 PM EDT Laura Prado, PCNA No [facility] Mental Status Date Assessment Result Facility 07-13-2013 Because of a physica l, mental, or emotional condition, do you have serious difficulty concentrating, remembering, or making decisions No 07/13/2013 1:20 PM EDT JohanLaura, PCNA No [facility] Clinical Notes 11-03-2024 to 02-02-2025 Telephone Encounter - Estelita Torres RN - 12/20/2024 12:18 PM EDTTelephone Encounter - Estelita Torres RN - 12/20/2024 12:18 PM EDTTelephone Encounter - Claudia Fregoso RN - 11/09/2024 1:51 PM EDT Note Date & Type Note Facility 02-02-2025 Note HNO ID: [id number] Author: STEFANIE DONG MA Service: ? Author Type: Brake Engineer Type: Progress Notes Filed: 02/02/2025 13:17 Note Text: POPULATION HEALTH NAVIGATION OUTREACH Action/FYI Called and spoke with pt and states she prefers to let her OB know and update information. Reason for Outreach Medicaid OB/Peds Care Gaps due: N/A Patient Contacted: Spoke to patient/parent/or legal guardian Patient identified by name and : Yes Medicaid OB/Peds actions taken: Patient declined: Doesn't feel it's necessary Navigation Signature: Stefanie Ocampo MA February 02, 2025 1:15 PM [facility] 02-01-2025 Note HNO ID: [id number] Author: STEFANIE DONG MA Service: ? Author Type: Brake Engineer Type: Progress Notes Filed: 02/01/2025 12:08 Note Text: [id number] HEALTH NAVIGATION OUTREACH Action/FYI 1st attempt: Called and unable to leave message to call back to discuss renal dialysis technician. MC message sent. Reason for Outreach Medicaid OB/Peds Care Gaps due: N/A Patient Contacted: Unable or unnecessary to reach patient: Unable to reach patient Unable to leave message Kallik message sent Navigation Signature: Stefanie Ocampo MA February 01, 2025 11:45 AM [facility] 02-01-2025 Note Patient Outreach (NE TNAV) GIANNI BENTLEY ([id number]) 1990 F Date Time Provider Department 02/01/25 STEFANIE DONG During your visit today, we recorded the following information about you: Stefanie Dong MA 02/01/2025 12:08 PM Signed [id number] HEALTH NAVIGATION OUTREACH Action/I 1st attempt: Called and unable to leave message to call back to discuss renal dialysis technician. MC message sent. Reason for Outreach Medicaid OB/Peds Care Gaps due: N/A Patient Contacted: Unable or unnecessary to reach patient: Unable to reach patient Unable to leave message Kallik message sent Navigation Signature: Stefanie Ocampo MA February 01, 2025 11:45 AM Stefanie Dong MA 02/02/2025 1:17 PM Signed POPULATION HEALTH NAVIGATION OUTREACH Action/FYI Called and spoke with pt and states she prefers to let her OB know and update information. Reason for Outreach Medicaid OB/Peds Care Gaps due: N/A Patient Contacted: Spoke to patient/parent/or legal guardian Patient identified by name and : Yes Medicaid OB/Peds actions taken: Patient declined: Doesn't feel it's necessary Navigation Signature: Stefanie Ocampo MA February 02, 2025 1:15 PM Allergies As of Date: 02/01/2025 (No Known Allergies) Date Reviewed: 01/26/2025 Reviewed by: Maicol Acuna MD - Fully Assessed Reason for Visit: Population Health Navigation Outreach [3910] Cmt: to PCP/OB Prescriptions as of 02/02/2025 - BABY ASPIRIN ORAL Take 2 tablets by mouth once daily. - esomeprazole magnesium (NEXIUM PACKET) 40 mg packet Take 20 mg by mouth daily at 6 am. - calcium Carbonate 300 mg, 750mg, (TUMS) 300 mg (750 mg) chewable tablet Take 1 tablet by mouth as needed. - MULTIVITAMIN/IRON/FOLIC ACID (MULTI-JOHN ORAL) Take 1 tablet by mouth once daily. 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 Author Type: Family Law Specialist Type: Progress Notes Filed: 01/18/2025 10:49 Note Text: Seo Executive offered: Patient declines. INITIAL OB ASSESSMENT HPI: Gianni is a 34 year old White Female here to establish Obstetrical Care. Patient's last menstrual period was 05/05/2024. from OB Dating Form. was planned Complaints: No OB History Gravida1 Para0 Term0 Preterm0 AB0 Living0 SAB0 IAB0 Ectopic0 Multiple0 Live Births0 Previous history: Prior : never History of 4th degree laceration: NA History of shoulder dystocia: No History of Hypertensive disorders including pre-eclampsia or gestational hypertension: NA History of gestational diabetes: NA Patient's Risk Screening for delivery: Have you had a prior pedro between 20w and 36w6d? No How many pregnancies have you had before? 0 Did you have a previous baby with a GBS Infection? No Please select all that apply for any prior : N/A MEDICAL/PSYCHOSOCIAL HISTORY: History of hemorrhage or bleeding concerns: No Thyroid Disease: No History of chronic hypertension: No History of pre-existing diabetes: No ABO/RH(D) Date Value Ref Range Status 07/12/2013 B POS Final BMI 35.07 kg/(m2) Last Pap: 07/2024 History of abnormal pap: Yes Prior treatment for cervical dysplasia: Cloposcopy x 3 or 4 . Last HPV: History of STDs: Chlamydia; HPV Partner History of STDs: Gonorrhea Did you have a partner with Herpes? No Tobacco use: No E-Cigarette/Vaping Use: No Caffeine use: Yes Drug use: No Alcohol use: No Multivitamin with Folic acid: Yes Would refuse blood transfusion if medically necessary: No Social Needs: How often does this describe you? I don't have enough money to pay my bills: Never Within the past 12 months, have you worried that your food would run out before you had money to buy more? Never In the past 12 months, has lack of reliable transportation kept you from going to medical appointments or work, or from getting things needed for daily living? Never In the past 12 months, have you had any concerns about having a place to live, or about the condition or quality of your housing? Never Would you like more information on any of the following (please check all that apply)? Not interested Social History: Do you have any history of depression, anxiety, PTSD, or other mood problems? Yes Do you have a history of abuse or trauma that may impact your experience? No Are you currently employed? Yes Depression/Anxiety Screening: denies, admits to symptoms of depression. OB Depression and Anxiety Screening- This Encounter Feeling down, depressed, or hopeless: Not at all Little interest or pleasure in doing things: Not at all Feeling nervous, anxious, or on edge Not at all Not being able to stop or control worrying Not at all Anxiety Pre-Screening Total (If >/= 3 additional questions will be reviewed) 0 Genetic Screening: Partner present: No Patient verbalized knowledge of partner family health history: Yes Do you or your partner have any personal or family history of defects not previously discussed: No Do you have history of a complicated by anomaly, genetic condition, or demise: No Preeclampsia Risk Screening: Screening for prevention of preeclampsia: High risk factors: None Moderate risk ractors: None OB Risk Screening: Completed, no positive findings documented. 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 esomeprazole magnesium (NEXIUM PACKET) 40 mg packet Take 20 mg by mouth daily at 6 am. calcium Carbonate 300 mg, 750mg, (TUMS) 300 mg (750 mg) chewable tablet Take 1 tablet by mouth as needed. MULTIVITAMIN/IRON/FOLIC ACID (MULTI-JOHN ORAL) Take 1 tablet by mouth once daily. CALCIUM CARBONATE (CALCIUM 300 ORAL) Take 1 tablet by mouth once daily. (Patient not taking: Reported on 01/12/2025) No current facility-administered medications for this visit. Allergies As of Date: 01/15/2025 (No Known Allergies) Fully Assessed 01/15/2025 Does patient have penicillin allergy: No REVIEW OF SYSTEMS: GENERAL: Negative for: Fever or Chills HEENT: Negative for: Headache, Impaired Vision, Ringing in Ears, Nosebleeds NECK: Negative for: Swelling, Pain, Stiffness RESPIRATORY: Negative for: Cough, Shortness of breath, Whee (more content not included)... [facility] 12-20-2024 Telephone encount er Note Records received from [facility] in [place]. Sent to medical records to scan into [employer] for upcoming NOB on 01/15. [facility] 12-20-2024 Miscellaneous Notes Formattin g of this note might be different from the original. Records received from [facility] in [place]. Sent to medical records to scan into epic for upcoming NOB on 01/15. documented in this encounter [facility] 11-09-2024 Telephone encount er Note Patient has appt - closing encounter. [facility] 11-09-2024 Miscellaneous Notes Formattin g of this note might be different from the original. Patient has appt - closing encounter. PSS: Please contact patient to schedule New OB visit. Will need to be scheduled with base loader or doctor. Thank you. Delores Leblanc RN Call placed to patient to triage for new OB appt. Name and verified. Patient wishes to transfer to [facility] for OB care. NAEL? 02/15/2025 Gestational age? 25w1d Patient aware to sign up for My Chart so she can receive the "residential care officer" messages. What facility is she transferring from? [facility] in [place] When was her last office visit or will be the last visit with the current facility? 10/26 Does patient have records she is bringing with her? Patient will have the records faxed will need number. Any current pelvic pain/vaginal bleeding or any medical concerns that affect the ? no Has patient tested + for GDM or HTN with this ? Patient not had glucose yet, BP WNL Have you had your anatomy scan? WNL apart from small amount of extra fluid around kidney which she was told was common with boys. Which office/provider would the patient like to establish in? [place] Will route this encounter to the desired office. Patient is 6 months and would like to transfer her OB care of to [place]. She is currently a patient at [facility] in [place]. Please review and advise. Radha Saunders November 03, 2024 12:51 PM documented in this encounter [facility] 11-03-2024 Telephone encount er Note PSS: Please contact patient to schedule New OB visit. Will need to be scheduled with base loader or doctor. Thank you. Delores Leblanc RN [facility] 11-03-2024 Telephone encount er Note Call placed to patient to triage for new OB appt. Name and verified. Patient wishes to transfer to [facility] for OB care. NAEL? 02/15/2025 Gestational age? 25w1d Patient aware to sign up for My Chart so she can receive the "residential care officer" messages. What facility is she transferring from? [facility] in [place] When was her last office visit or will be the last visit with the current facility? 10/26 Does patient have records she is bringing with her? Patient will have the records faxed will need number. Any current pelvic pain/vaginal bleeding or any medical concerns that affect the ? no Has patient tested + for GDM or HTN with this ? Patient not had glucose yet, BP WNL Have you had your anatomy scan? WNL apart from small amount of extra fluid around kidney which she was told was common with boys. Which office/provider would the patient like to establish in? [place] Will route this encounter to the desired office. [facility] 11-03-2024 Telephone encount er Note Patient is 6 months and would like to transfer her OB care of to [place]. She is currently a patient at [facility] in [place]. Please review and advise. Radha Saunders November 03, 2024 12:51 PM [facility] Summary Purpose Family History No Family History Records FoundNo Family History Records FoundNo Family History Records Found Advance Directives No Advanced Directives Records FoundNo Advanced Directives Records FoundNo Advanced Directives Records Found Additional Source Comments Source Comments (unrecognize d section and content) In the event this informatio n is protected by the Federal Confidentiality of Alcohol and Drug Abuse Patient Records regulations: The Federal rules restrict any use of the information to criminally investigate or prosecute any alcohol or drug abuse [facility] the event this information is protected by the Federal Confidentiality of Alcohol and Drug Abuse Patient Records regulations: The Federal rules restrict any use of the information to criminally investigate or prosecute any alcohol or drug abuse patient.[facility] Reason for Visit (unrecogniz ed section and content) 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 This clinical summary was aggregated from multiple sources. Caution should be exercised in using it in the provision of clinical care. This summary normalizes information from multiple sources, and as a consequence, information in this document may materially change the coding, format and clinical context of patient data. In addition, data may be omitted in some cases. CLINICAL DECISIONS SHOULD BE BASED ON THE PRIMARY CLINICAL RECORDS. [facility] [employer] [facility]. provides no warranty or guarantee of the accuracy or completeness of information in this document.
[2025-02-11 19:26] VITALS: BMI 34.3
[2025-02-11 19:35] VITALS: RESP 16; TEMP 36.7
[2025-02-11 19:36] VITALS: BP 127/82; PULSE 118
--- OUTSIDE RECORDS SUMMARY | 2025-02-11 19:55 | XMS RPT_ITS | CCD ---
Author Organization [facility] Care Team Providers Care Medical Collections Name Role Phone Unavailable Primary Care Provider [...] Referring Unavailable MAICOL ACUNA Attending Unavailable SANA ALMODOVAR Referring Unavailable Medications Current Medications Medication Drug [...] [ with care elsewhere in third trimester ([facility])] Onset: 01-18-2025 Episodic Residual codes; unclassified (1 source) 38 weeks gestation of ; Translations: [38 weeks gestation of ([facility])] Onset: 02-07-2025 Episodic Residual codes; unclassified (1 source) 37 weeks gestation of ; Translations: [37 weeks gestation of ([facility])] Onset: 02-02-2025 Episodic Residual codes; unclassified (1 source) 36 weeks gestation of ; Translations: [36 weeks gestation of ([facility])] Onset: 01-15-2025 Episodic Residual codes; unclassified (1 [...] Blanc 02-09-2025 EVELYNE Telephone (SILVIANOGY) GIANNI BENTLEY ([id number]) 1990 F Date Time Provider Department 02/09/25 [...] (HCC) [Z3A.36] 01/15/2025 with care elsewhere in [facility]*01/15/2025 Human papillomavirus (HPV) type 18 DNA detected*01/15/2025 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] 02/09/2025 02/09/2025 Pyelectasis of fetus on ultrasound (*02/09/2025 Encounter Status:Closed by DELORES LEBLANC on 02/09/25 Normal [facility] ROUTINE, GROUP B ST REPTOCOCCUS BY PCRon 01-15-2025 ROUTINE, GROUP B STREPTOCOCCUS BY PCR Not detected Normal [facility] Comment on above: Performed By: #### G BPCR #### [facility] [facility] CLIA [id number] [address] [place] [address] CNPNon 12-20-2024 CNPN Telephone (OBGYWM) GIANNI BENTLEY ([id number]) 1990 F Date Time Provider Department 12/20/24 SANA ALMODOVAR During your visit today, we recorded the following information about you: Estelita Torres RN 12/20/2024 12:21 PM Signed Records received from [facility] in [place]. Sent to medical records to scan into [employer] for upcoming NOB on 01/15. Allergies As of Date: 12/20/2024 (No Known Allergies) Date Reviewed: 07/13/2013 Reviewed by: Laura Prado Ma - Fully Assessed Reason for Visit: Received Outside Medical Records [[id number]] Prescriptions as of 12/20/2024 - MULTIVITAMIN/IRON/FOL IC ACID (MULTI-JOHN ORAL) Take 1 tablet by mouth once daily. - CALCIUM CARBONATE (CALCIUM 300 ORAL) Take 1 tablet by mouth once daily. 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] 07/23/2013 Encounter Status:Closed by ESTELITA TORRES on 12/20/24 Normal [facility] RPRon 11-29-2024 Reagin Ab RPR Ql (S) Non-Reactive Normal Non Reactive [facility] Comment on above: Order Comment: Order ed on Fin# [id number] Performed By: #### 1 [id number] #### [facility] [address] [place] [address] Mammalogy Teacher: Isac Chavarria MD AUTO DIFFon 11-27-2024 Baso Count 0.02 x1000 Normal 0.00-0.20 [facility] Comment on above: Performed By: #### 6 [id number], [id number], [id number] #### [facility] [address] [place] [address] Mammalogy Teacher: Isac Chavarria MD Basos % 0.2 % Normal [facility] Comment on above: Performed By: #### 6 [id number], [id number], [id number] #### [facility] [address] [place], [place] [address] Mammalogy Teacher: Isac Chavarria MD Eos Count 0.10 x1000 Normal 0.00-0.50 [facility] Comment on above: Performed By: #### 6 [id number], 943103, [id number] #### [facility] [address] [place] [address] Mammalogy Teacher: Isac Chavarria MD Eosinophils/100 WBC (Bld) 0.8 % Normal [facility] Comment on above: Performed By: #### 6 [id number], 635046, [id number] #### [facility] [address] [place], [place] [address] Mammalogy Teacher: Isac Chavarria MD Lymph Count 2.02 x1000 Normal 1.20-4.80 [facility] Comment on above: Performed By: #### 6 870411, 708563, [id number] #### [facility] [address] [place] [address] Mammalogy Teacher: Isac Chavarria MD Lymphocytes/100 WBC (Bld) 17.6 % Normal [facility] Comment on above: Performed By: #### 6 663541, 301754, [id number] #### [facility] [address] [place] [address] Mammalogy Teacher: Isac Chavarria MD [place] Count 0.88 x1000 Normal 0.10-1.00 [facility] Comment on above: Performed By: #### 6 497575, 687344, 8765415 #### [facility] [address] [place] [address] Mammalogy Teacher: Isac Chavarria MD Monocytes/100 WBC (Bld) 7.6 % Normal [facility] Comment on above: Performed By: #### 6 606117, 639807, 7746533 #### [facility] [address] [place] [address] Mammalogy Teacher: Isac Chavarria MD Neutrophil Count (ANC) 8.43 x1000 Normal 1.40-8.80 [facility] Comment on above: Performed By: #### 6 302117, 839697, 9973638 #### [facility] [address] [place] [address] Mammalogy Teacher: Isac Chavarria MD Neutrophils/100 WBC (Bld) 73.7 % Normal [facility] Comment on above: Performed By: #### 6 926294, 336673, 4579001 #### [facility] [address] [place] [address] Mammalogy Teacher: Isac Chavarria MD GGLU 1HRPCon 11-27-2024 1 HR Post Cola Gestational Glucose 67 mg/dL Low 120-135 [facility] Comment on above: Order Comment: Order ed on [facility]# [id number] Result Comment: Susan puncture should occur prior to sulfasalazine administration due to the potential for falsely depressed results. Venipuncture should occur prior to sulfapyridine administration due to the potential falsely elevated results. Baseline assay values before administration of sulfasalazine and sulfapyridine therapy would not be affected. Performed By: #### 6 139152, 772570, 8243581 #### [facility] [address] [place] [address] Mammalogy Teacher: Isac Chavarria MD HEMOon 11-27-2024 DIFF? No Normal [facility] Comment on above: Performed By: #### 6 790616, 955919, 5664732 #### [facility] [address] [place] [address] Mammalogy Teacher: Isac Chavarria MD Erythrocyte distribution width (RBC) [Ratio] 13.4 % Normal 11.5-14.5 [facility] Comment on above: Performed By: #### 6 691749, 701599, 9494154 #### [facility] [address] [place] [address] Mammalogy Teacher: Isac Chavarria MD Hematocrit (Bld) [Volume fraction] 37.3 % Normal 36.0-46.0 [facility] Comment on above: Performed By: #### 6 023289, 147002, 1966841 #### [facility] [address] [place] [address] Mammalogy Teacher: Isac Chavarria MD Hemoglobin (Bld) [Mass/Vol] 12.5 g/dL Normal 12.0-16.0 [facility] Comment on above: Performed By: #### 6 215503, 563447, 6283590 #### [facility] [address] [place] [address] Mammalogy Teacher: Isac Chavarria MD Instr WBC 11.4 Normal [facility] Comment on above: Performed By: #### 6 690582, 312782, 0713478 #### [facility] [address] [place] [address] Mammalogy Teacher: Isac Chavarria MD MCH (RBC) [Entitic mass] 31.5 pg Normal 27.0-34.0 [facility] Comment on above: Performed By: #### 6 934513, 091532, 5485345 #### [facility] [address] [place] [address] Mammalogy Teacher: Isac Chavarria MD MCHC (RBC) [Mass/Vol] 33.5 g/dL Normal 32.0-37.0 [facility] Comment on above: Performed By: #### 6 409124, 699547, 5688100 #### [facility] [address] [place] [address] Mammalogy Teacher: Isac Chavarria MD MCV (RBC) [Entitic vol] 94.3 fL Normal 80.0-100.0 [facility] Comment on above: Performed By: #### 6 812659, 000147, 0763737 #### [facility] [address] [place] [address] 8[address]98 Mammalogy Teacher: Isac Chavarria MD Nucleated RBC 0 /100WBC Normal [facility] Comment on above: Performed By: #### 6 250380, 399029, 5853833 #### [facility] [address] [place] [address] Mammalogy Teacher: Isac Chvaarria MD Platelet 342 x10 Normal 150-450 [facility] Comment on above: Performed By: #### 6 781929, 517708, 2452846 #### [facility] [address] [place] [address] Mammalogy Teacher: Isac Chavarria MD Platelet mean volume (Bld) [Entitic vol] 8.7 fL Normal 7.4-10.4 [facility] Comment on above: Performed By: #### 6 561763, 946844, 9032374 #### [facility] [address] [place] [address]6066 Mammalogy Teacher: Isac Chavarria MD RBC 3.96 x10 Low 4.20-5.40 [facility] Comment on above: Result Comment: Note : RBC morphology is normal unless otherwise stated. Evaluation performed only if differential is requested. Performed By: #### 6 970837, 378589, 9063647 #### [facility] [address] [place] [address] Mammalogy Teacher: Isac Chavarria MD WBC 11.4 x10 High 4.5-11.0 [facility] Comment on above: Performed By: #### 6 064448, 163915, 8389789 #### [facility] [address] [place] [address] Mammalogy Teacher: MD Jayashree Wu 11-03-2024 CNPN Telephone (OBGYWM) GIANNI BENTLEY ([id number]) 1990 F Date Time Provider Department 11/03/24 SELF OBGYWM During your visit today, we recorded the following information about you: Radha Saunders 11/03/2024 12:51 PM Signed Patient is 6 months and would like to transfer her OB care of to [place]. She is currently a patient at [facility] in [place]. Please review and advise. Radha Saunders November 03, 2024 12:51 PM Claudia Fregoso RN 11/03/2024 1:19 PM Signed Call placed to patient to triage for new OB appt. Name and verified. [facility] NAEL? 02/15/2025 Gestational age? 25w1d Patient aware to sign up for My Chart so she can receive the family day care provider messages. What facility is she transferring from? [facility] in [place] When was her last office visit or [...] visit. Will need to be scheduled with bridge game director or doctor. Thank you. DANIELLE Dumas Jennifer, RN 11/09/2024 1:52 PM Signed Patient has appt - closing encounter. 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 - CALCIUM CARBONATE (CALCIUM 300 ORAL) Take 1 tablet by mouth once daily. 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 RVOT view. LVOT view. 3-vessel view. 7-dtbvwf-rsiaxmk view. Situs. Aortic arch view. Ductal arch [...] Selena Tarango MD 10/05/2024 05:21 PM EDT [facility] Comment on above: Order Comment: Order ed on [facility]# [id number] Result Comment: Tech nologist: DM Dictated By: SELENA TARANGO MD Signed By: SELENA TARANGO MD Signed Out: 10/05/24 17:21:27 US [...] no gross abnormalities were noted on examination [facility] Comment on above: Order Comment: Order ed on Fin# [id number] Result Comment: Tech nologist: DM Dictated By: TAMRA NELSON Signed By: TAMRA NELSON Transcribed: 09.08.2024 16:00 Signed Out: 09/08/24 16:00:22 Discharge Educationon 2024 Discharge Education [facility] THIN PREP IMAGE SEND OUTon 0 08-23-2024 THINPREP TIS PAP SEE COMMENT [facility] Comment on above: Order Comment: Order ed on Fin# [id number] Result Comment: THIN PREP TIS PAP Lab: [facility] CLINICAL INFORMATION: None given LMP: None given prev. Pap: None given prev. Bx: None given SOURCE: None given STATEMENT OF ADEQUACY: Satisfactory for evaluation. Endocervical/transformation zone component absent. INTERPRETATION/RESULT: Cytology Results: Negative for intraepithelial lesion or malignancy. COMMENT: This Pap test has been evaluated with computer assisted technology. COLUMNIST/COMMENTATOR: YOON RUBIO(ASCP) CT Screening Location: [place] [address] PATHOLOGIST: Florence Rodriguez M.D. Board Certified in Anatomic and Clinical Pathology (electronic signature) For questions regarding this report call Anatomic Pathology at [phone] For questions contact Anatomic Pathology Client Services at [phone] EXPLANATORY NOTE: The Pap is a screening test for cervical cancer. It is not a diagnostic test and is subject to false negative and false positive results. It is most reliable when a satisfactory sample, regularly obtained, is submitted with relevant clinical findings and history, and when the Pap result is evaluated along with historic and current clinical information. PERFORMING SITE: [facility] [address] [address] Correctional Therapy Director: ALBERTO ESCAMILLA MD, CLIA: [id number] Performed By: #### 1 [id number] #### [facility] [address] [place] [address] Mammalogy Teacher: Isac Chavarria MD Hernan 08-22-[address] Genprobe Chlam[address] Normal [facility] Comment on above: Order Comment: Order ed on Fin# [id number] Result Comment: This Chlamydia assay is being performed via a second generation NAAT that utilizes target capture, varnish inspector mediated amplification and dual kenetic assay technologies. Performed By: #### 1 [id number], [id number], [id number] #### [facility] [address] [place] [address] Mammalogy Teacher: Isac Chavarria MD GP GCon 08-22-2024 Genprobe GC Negative Normal [facility] Comment on above: Order Comment: Order ed on Fin# [id number] Result Comment: This Gonorrhoea assay is being performed via a second generation NAAT that utilizes target capture, varnish inspector mediated amplification and dual kenetic assay technologies. Performed By: #### 1 61753, [id number], 695411 #### [facility] [address] [place] [address] [id number] Mammalogy Teacher: Isac Chavarria MD GP Trichomonason 08-22-2024 GP Trichomonas Negative Normal Negative [facility] Comment on above: Order Comment: Order ed on Fin# [id number] Result Comment: This Trichomonas assay is performed via a second generation NAAT that utilizes target capture, varnish inspector mediated amplification and dual kenetic assay technologies. Performed By: #### 1 52356, [id number], [id number] #### [facility] [address] [place] [address] Mammalogy Teacher: Isac Chavarria MD RPRon 08-21-2024 Reagin Ab RPR Ql (S) Non-Reactive Normal Non Reactive [facility] Comment on above: Order Comment: Order ed on Fin# [id number] Performed By: #### 1 [id number] #### [facility] [address] [place] [address] Mammalogy Teacher: Isac Chavarria MD C URINEon 08-19-[address] [facility] [address] [place] [phone] Name: GIANNI BENTLEY : 1990 Admitting Provider: Gender Female [facility] [phone] : Number: [facility] Lab Svc. n: Admit [...] BENTLEY Print 08/20/2024 19:21 EDT Date/Time: Normal [facility] Comment on above: Performed By: #### 1 [id number] #### [facility] [address] [place] [address] Mammalogy Teacher: Isac Chavarria MD ABORHon 08-18-2024 ABORH CK Interp Positive [facility] Comment on above: Order Comment: Order ed on Fin# [id number] Performed By: #### 1 [id number] #### [facility] [address] [place] [address] Mammalogy Teacher: Isac Chavarria MD ABORH Interpretation Positive Normal [facility] Comment on above: Order Comment: Order ed on Fin# [id number] Performed By: #### 1 [id number] #### [facility] [address] [place], [place] [address] Mammalogy Teacher: Isac Chavarria MD Anti-A recheck 0 Normal [facility] Comment on above: Order Comment: Order ed on Fin# [id number] Performed By: #### 1 [id number] #### [facility] [address] [place] [address] Mammalogy Teacher: Isac Chavarria MD Anti-B recheck 4+ Normal [facility] Comment on above: Order Comment: Order ed on Fin# [id number] Performed By: #### 1 [id number] #### [facility] [address] [place] [address] Mammalogy Teacher: Isac Chavarria MD Anti-D recheck 3+ Normal [facility] Comment on above: Order Comment: Order ed on Fin# [id number] Performed By: #### 1 [id number] #### [facility] [address] [place] [address] Mammalogy Teacher: Isac Chavarria MD Patient History Check No Previous Hx Normal [facility] Comment on above: Order Comment: Order ed on Fin# [id number] Performed By: #### 1 [id number] #### [facility] [address] [place] [address] Mammalogy Teacher: Isac Chavarria MD VS 0.8% a cells 4+ [facility] Comment on above: Order Comment: Order ed on Fin# [id number] Performed By: #### 1 [id number] #### [facility] [address] [place] [address] Mammalogy Teacher: Isac Chavarria MD VS 0.8% b cells 0 [facility] Comment on above: Order Comment: Order ed on Fin# [id number] Performed By: #### 1 [id number] #### [facility] [address] [place] [address] Mammalogy Teacher: Isac Chavarria MD VS Anti-A Unit 0 [facility] Comment on above: Order Comment: Order ed on Fin# [id number] Performed By: #### 1 [id number] #### [facility] [address] [place] [address] Mammalogy Teacher: Isac Chavarria MD VS Anti-B Unit 4+ Normal [facility] Comment on above: Order Comment: Order ed on Fin# [id number] Performed By: #### 1 [id number] #### [facility] [address] [place] [address] Mammalogy Teacher: Isac Chavarria MD VS Anti-D Unit 4+ Normal [facility] Comment on above: Order Comment: Order ed on Fin# [id number] Performed By: #### 1 [id number] #### [facility] [address] [place] [address] Mammalogy Teacher: Isac Chavarria MD ABSCon 08-18-2024 ABSC Final Interp Negative [facility] Comment on above: Order Comment: Order ed on Fin# [id number] Performed By: #### 1 [id number] #### [facility] [address] [place] [address] Mammalogy Teacher: Isac Chavarria MD Pt Hx check done? Yes [facility] Comment on above: Order Comment: Order ed on Fin# [id number] Performed By: #### 1 [id number] #### [facility] [address] [place] [address] Mammalogy Teacher: Isac Chavarria MD VS SCI Gel 0 [facility] Comment on above: Order Comment: Order ed on Fin# [id number] Performed By: #### 1 [id number] #### [facility] [address] [place] [address] Mammalogy Teacher: Isac Chavarria MD VS SCII Gel 0 [facility] Comment on above: Order Comment: Order ed on Fin# [id number] Performed By: #### 1 [id number] #### [facility] [address] [place] [address] Mammalogy Teacher: Isac Chavarria MD AUTO DIFFon 08-18-2024 Baso Count 0.03 x1000 Normal 0.00-0.20 [facility] Comment on above: Performed By: #### 1 [id number] #### [facility] [address] [place] [address] Mammalogy Teacher: Isac Chavarria MD Basos % 0.3 % Normal [facility] Comment on above: Performed By: #### 1 [id number] #### [facility] [address] [place] [address] 28440 Mammalogy Teacher: Isac Chavarria MD Eos Count 0.05 x1000 Normal 0.00-0.50 [facility] Comment on above: Performed By: #### 1 [id number] #### [facility] [address] [place], [place] [address] Mammalogy Teacher: Isac Chavarria MD Eosinophils/100 WBC (Bld) 0.4 % Normal [facility] Comment on above: Performed By: #### 1 [id number] #### [facility] [address] [place] [address] Mammalogy Teacher: Isac Chavarria MD Lymph Count 2.88 x1000 Normal 1.20-4.80 [facility] Comment on above: Performed By: #### 1 [id number] #### [facility] [address] [place], [place] [address] Mammalogy Teacher: Isac Chavarria MD Lymphocytes/100 WBC (Bld) 26.9 % Normal [facility] Comment on above: Performed By: #### 1 [id number] #### [facility] [address] [place] [address] Mammalogy Teacher: Isac Chavarria MD [place] Count 0.70 x1000 Normal 0.10-1.00 [facility] Comment on above: Performed By: #### 1 [id number] #### [facility] [address] [place] [address] Mammalogy Teacher: Isac Chavarria MD Monocytes/100 WBC (Bld) 6.6 % Normal [facility] Comment on above: Performed By: #### 1 [id number] #### [facility] [address] [place] [address] Mammalogy Teacher: Isac Chavarria MD Neutrophil Count (ANC) 7.05 x1000 Normal 1.40-8.80 [facility] Comment on above: Performed By: #### 1 [id number] #### [facility] [address] [place] [address]57 Mammalogy Teacher: Isac Chavarria MD Neutrophils/100 WBC (Bld) 65.8 % Normal [facility] Comment on above: Performed By: #### 1 [id number] #### [facility] [address] [place] [address]39 Mammalogy Teacher: Isac Chavarria MD Antepartum Intake-Texton Antepartum Intake-Text [...] in, 160 cm) Body Mass Index Measured Monegasque : 29.93 kg/m2 BSA Monegasque : 1.84 m2 Pre- Weight : 76.8 [...] 08/18/2024 11:27:56 EDT) Problems(Active) Anxiety (SNOMED CT :71563995 ) Name of Problem: Anxiety ; Recorder: Quiana Rainey; Confirmation: Confirmed ; Classification: Medical ; Code: 00460918 ; Contributor System: PowerChart ; Last Updated: 08/08/2024 14:39 EDT ; Life Cycle Date: 08/08/2024 ; Life Cycle Status: Active ; Vocabulary: SNOMED CT Encounter for supervision of normal first in first trimester (SNOMED CT :975920442 ) Name of Problem: Encounter for supervision of normal first in first trimester ; Recorder: Asia Sullivan; Confirmation: Confirmed ; Classification: Medical ; Code: 464501932 ; Contributor System: PowerChart ; Last Updated: 08/11/2024 15:30 EDT ; Life Cycle Date: 08/11/2024 ; Life Cycle Status: Active ; Vocabulary: SNOMED CT History of cone biopsy of cervix complicating (SNOMED CT :39572195 ) Name of Problem: History of cone biopsy of cervix complicating ; Recorder: Asia Sullivan; Confirmation: Confirmed ; Classification: Medical ; Code: 37658910 ; Contributor System: PowerChart ; Last Updated: 08/11/2024 15:31 EDT ; Life Cycle Date: 08/11/2024 ; Life Cycle Status: Active ; Vocabulary: SNOMED CT Pap smear for cervical cancer screening (SNOMED CT :177984955 ) Name of Problem: Pap smear for cervical cancer screening ; Recorder: DORIS POOLE CNP; Confirmation: Confirmed ; Classification: Medical ; Code: [id number] ; Contributor System: PowerChart ; Last Updated: 08/14/2024 07:19 EDT ; Life Cycle Date: 08/14/2024 ; Life Cycle Status: Active ; Responsible Provider: DORIS POOLE CNP; Vocabulary: SNOMED CT (SNOMED CT :146386470 ) Name of Problem: ; Onset Date: 05/05/2024 ; Recorder: Asia Sullivan; Confirmation: Confirmed ; Classification: Medical ; Code: [id number] ; Last Updated: 08/11/2024 15: (more content not included)... Normal [facility] 08-18-2024 DIFF? No Normal [facility] Comment on above: Performed By: #### 1 , [id number] #### [facility] [address] [place] [address] Mammalogy Teacher: Isac Chavarria MD Erythrocyte distribution width (RBC) [Ratio] 12.8 % Normal 11.5-14.5 [facility] Comment on above: Performed By: #### 1 , [id number] #### [facility] [address] [place] [address] Mammalogy Teacher: Isac Chavarria MD Hematocrit (Bld) [Volume fraction] 38.2 % Normal 36.0-46.0 [facility] Comment on above: Performed By: #### 1 , [id number] #### [facility] [address] [place], [place] [id number] Mammalogy Teacher: Isac Chavarria MD Hemoglobin (Bld) [Mass/Vol] 13.2 g/dL Normal 12.0-16.0 [facility] Comment on above: Performed By: #### 1 , [id number] #### [facility] [address] [place] [address] Mammalogy Teacher: Isac Cahvarria MD Instr WBC 10.7 Normal [facility] Comment on above: Performed By: #### 1 , [id number] #### [facility] [address] [place], [place] [address] Mammalogy Teacher: Isac Chavarria MD MCH (RBC) [Entitic mass] 31.4 pg Normal 27.0-34.0 [facility] Comment on above: Performed By: #### 1 , [id number] #### [facility] [address] [place] [address] Mammalogy Teacher: Isac Chavarria MD MCHC (RBC) [Mass/Vol] 34.5 g/dL Normal 32.0-37.0 [facility] Comment on above: Performed By: #### 1 , [id number] #### [facility] [address] [place] [address] Mammalogy Teacher: Isac Chavarria MD MCV (RBC) [Entitic vol] 91.0 fL Normal 80.0-100.0 [facility] Comment on above: Performed By: #### 1 , [id number] #### [facility] [address] [place] [address] Mammalogy Teacher: Isac Chavarria MD Nucleated RBC 0 /100WBC Normal [facility] Comment on above: Performed By: #### 1 , [id number] #### [facility] [address] [place] [address] Mammalogy Teacher: Isac Chavarria MD Platelet 302 x10 Normal 150-450 [facility] Comment on above: Performed By: #### 1 , [id number] #### [facility] [address] [place] [address] Mammalogy Teacher: Isac Chavarria MD Platelet mean volume (Bld) [Entitic vol] 9.1 fL Normal 7.4-10.4 [facility] Comment on above: Performed By: #### 1 , [id number] #### [facility] [address] [place] [address] Mammalogy Teacher: Isac Chavarria MD RBC 4.19 x10 Low 4.20-5.40 [facility] Comment on above: Result Comment: Note : RBC morphology is normal unless otherwise stated. Evaluation performed only if differential is requested. Performed By: #### 1 , [id number] #### [facility] [address] [place] [address] Mammalogy Teacher: Isac Chavarria MD WBC 10.7 x10 Normal 4.5-11.0 [facility] Comment on above: Performed By: #### 1 , [id number] #### [facility] [address] [place] [address] Mammalogy Teacher: Isac Chavarria MD HEP B AGon 08-18-2024 Hepatitis B Surface Antigen Non-Reactive Normal [facility] Comment on above: Order Comment: Order ed on Fin# [id number] Result Comment: Leonie ents taking biotin supplements may have false negative results with this assay Performed By: #### 1 [id number] #### [facility] [address] [place] [address] Mammalogy Teacher: Isac Chavarria MD HIV 1O2on 08-18-2024 HIV Panel 1&2 Non-Reactive Normal [facility] Comment on above: Order Comment: Order ed on Fin# [id number] Performed By: #### 1 [id number] #### [facility] [address] [place] [address] Mammalogy Teacher: Isac Chavarria MD RUBELLA SCREENon 08-18-2024 Rubella Serology Immune Normal [facility] Comment on above: Order Comment: Order ed on Fin# [id number] Performed By: #### 1 [id number] #### [facility] [address] [place] [address] Mammalogy Teacher: Isac Chavarria MD [facility] Physician Progress No girish 08-15-2024 [facility] Physician Progress Note GIANNI BENTLEY :1990 Registration Date:08/08/2024 Assessment/Plan This Visit Diagnosis Encounter to determine viability of O36.80X0 I [address] Covarrubias who agreed to deliver her in [place] if she chooses to stay in our care. I notified her 08/15/24-she is going to speak with her partner. 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 Hx of Cone Bx, has had a little bit of cramping but no bleeding feeling little anxious History of Present Illness Gianni is a 34 year old G1 who presents for ultrasound to evaluate for . She has had some cramping. No nausea. She wants to deliver in [place]. 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 Normal [facility] Comment on above: Order Comment: Order ed on Fin# [id number] Result Comment: Tech nologist: STEPHON Dictated By: ZEE JOHNSTON MD, FACOG Signed By: ZEE JOHNSTON MD, FACOG Transcribed: 08.08.2024 14:50 Signed Out: 08/08/24 14:50:53 Encounters Encounter Date Encounter Type Care Provider Facility Start: 02-15-2025 ambulatory No Primary Car e Physician Facility:[facility] Start: 02-07-2025 End: 02-07-2025 ambulatory SANA ALMODOVAR Facility:[facility] Start: 02-02-2025 End: 02-02-2025 ambulatory CHRISTINA DAYSI Facility:[facility] Start: 01-26-2025 End: 01-26-2025 ambulatory MAICOL ACUNA Facility:[facility] Start: 01-15-2025 End: 01-15-2025 ambulatory SANA ALMODOVAR Facility:[facility] Start: 01-04-2025 End: 01-04-2025 ambulatory 837 NO FAMILY PHYSICIAN Facility:[facility] Start: 12-21-2024 End: 12-21-2024 ambulatory 837 NO FAMILY PHYSICIAN Facility:[facility] Start: 12-20-2024 End: 12-20-2024 Telephone encounter Sana Scooby SHRESTHA Work Phone: OB/Gynecology Comment on above: Received Outside Med ical Records Start: 12-07-2024 End: 12-07-2024 ambulatory 837 NO FAMILY PHYSICIAN Facility:[facility] Start: 11-27-2024 End: 11-27-2024 ambulatory 837 NO FAMILY PHYSICIAN Facility:[id number] Start: 11-27-2024 End: 11-27-2024 ambulatory 837 NO FAMILY PHYSICIAN Facility:[facility] Start: 11-03-2024 End: 11-09-2024 Telephone encounter Self OB/Gynecology Comment on above: Applications Developer - O ther (Initial OB RN CC pool/) Start: 10-26-2024 End: 10-26-2024 ambulatory 837 NO FAMILY PHYSICIAN Facility:[facility] Start: 10-04-2024 End: 10-04-2024 ambulatory 837 NO FAMILY PHYSICIAN Facility:[facility] Start: 09-14-2024 End: 09-14-2024 ambulatory 837 NO FAMILY PHYSICIAN Facility:[facility] Start: 08-31-2024 End: 08-31-2024 ambulatory 837 NO FAMILY PHYSICIAN Facility:[facility] Start: 08-18-2024 End: 08-18-2024 ambulatory 837 NO FAMILY PHYSICIAN Facility:[id number] Start: 08-18-2024 End: 08-18-2024 ambulatory 837 NO FAMILY PHYSICIAN Facility:[facility] Start: 08-18-2024 End: 08-18-2024 ambulatory 837 NO FAMILY PHYSICIAN Facility:[id number] Start: 08-08-2024 End: 08-08-2024 ambulatory 837 NO FAMILY PHYSICIAN Facility:[facility] Plan of Treatment Date Care Activity Detail Author Start: 05-22-2032 Urine microalbumin profile DTa P,Tdap,Td Vaccine (2 - Td or Tdap) [facility] Start: 01-15-2025 End: 01-15-2025 Patient encounter procedure 01/15/2025 8:45 AM EDT Initial Office Visit OB/Gynecology [address] [place], [place] [id number] Sana Almodovar APRN.CN [address] [place] [address] ob lmp 1/17 being seen in [place] until jan 04 when pt will be 34 weeks OB/Gynecology Comment on above: ob lmp 1/17 being se en in [place] until jan 04 when pt will be 34 weeks Start: 12-18-2024 Influenza vaccination Influenza Vacc ine (#1) [facility] Start: 07-05-2018 HPV Vaccine (1 - 3-d ose SCDM series) HPV Vaccine (1 - 3-dose SCDM series) [facility] Start: 07-05-2012 Screening for malign ant neoplasm of cervix Cervical Cancer Screening [facility] Start: 07-05-2010 Hepatitis B Vaccine (1 of 3 - 19+ 3-dose series) Hepatitis B Vaccine (1 of 3 - 19+ 3-dose series) [facility] Start: 07-05-2009 Anxiety Screening Anxiety Screening [facility] Start: 07-05-2009 Depression Screening Depression Scre ening [facility] Immunizations Immunization Date Immunization Notes Care Provider Fa cility 01-01-2023 influenza virus vacc ine, unspecified formulation [facility] Payers Date Payer Category Payer Self-pay 2025 Unknown [id number] 2024 Private Health Insurance [place] [id number] 2024 Unknown [id number] 2013 Blue Cross Blue [facility] BLUE CARD PPO OOS [id number] 1990 Unknown [id number] .159 1990 Unknown [id number] 2.16840.1.107927.3.579.2 .159 1990 Unknown [id number] 2.16840.1.621071.3.579.2 .159 1990 Unknown [id number] 2.16840.1.353768.3.579.2 .159 1990 Unknown [id number] 2.16.840.1.670652.3.579.2 .159 1990 Unknown [id number] 2.16.840.1.094602.3.579.2 .159 1991 Unknown [id number] 2.16.840.1.280581.3.579.2 .159 1990 Unknown [id number] 2.16.840.1.979433.3.579.2 .159 1990 Unknown [id number] 2.16.840.1.571498.3.579.2 .159 1990 Unknown [id number] 2.16.840.1.247259.3.579.2 .159 1990 Unknown [id number] 2.16.840.1.021619.3.579.2 .159 1990 Unknown [id number] 2.16840.1.274288.3.579.2 .159 1990 Unknown [id number] 2.16.840.1.410132.3.579.2 .159 1990 Unknown [id number] 2.16.840.1.544947.3.579.2 .159 Unknown [id number] Unknown [id number] [id number] .462 Social History Date Type Detail Facility [facility]: 07[facility]13-2013 [facility] End: 04-19-2010 History of tobacco use Current smoker [facility] End: 04-19-2010 History of tobacco use Cigarette Smoker [facility] Start: 07-13-2013 Tobacco use and exposure Smoke less tobacco non-user [facility] Start: 07-13-2013 Alcoholic beverage intake Not Asked [facility] Start: 07-13-2013 Tobacco Comment 1-2 per day [facility] Start: 1990 Sex assigned at Not on file [facility] Gender identity Not on file [facility] Start: 04-25-2013 Sex Female [facility] Functional Status Date Assessment Result Facility 07-13-2013 Are you deaf, or do you have serious difficulty hearing No 07/13/2013 1:20 PM EDT Laura Prado, PCNA No [facility] 07-13-2013 Are you blind, or do you have serious difficulty seeing, even when wearing glasses No 07/13/2013 1:20 PM EDT Laura Prado, PCNA No [facility] 07-13-2013 Do you have serious difficulty walking or climbing stairs No 07/13/2013 1:20 PM EDT Laura Prado, PCNA No [facility] 07-13-2013 Do you have difficul ty dressing or bathing No 07/13/2013 1:20 PM EDT Laura Prado, PCNA No [facility] 07-13-2013 Because of a physica l, mental, or emotional condition, do you have difficulty doing errands alone such as visiting a physician's office or shopping No 07/13/2013 1:20 PM EDT Laura Prado, PCNA No [facility] Mental Status Date Assessment Result Facility 07-13-2013 Because of a physica l, mental, or emotional condition, do you have serious difficulty concentrating, remembering, or making decisions No 07/13/2013 1:20 PM EDT JhoanLaura, PCNA No [facility] Clinical Notes 11-03-2024 to 02-02-2025 Telephone Encounter - Estelita Torres RN - 12/20/2024 12:18 PM EDTTelephone Encounter - Estelita Torres RN - 12/20/2024 12:18 PM EDTTelephone Encounter - Claudia Fregoso RN - 11/09/2024 1:51 PM EDT Note Date & Type Note Facility 02-02-2025 Note HNO ID: [id number] Author: STEFANIE DONG MA Service: ? Author Type: Asphalt Heater Tender Type: Progress Notes Filed: 02/02/2025 13:17 Note [...] Ocampo MA February 02, 2025 1:15 PM [facility] 02-01-2025 Note HNO ID: [id number] Author: STEFANIE DONG MA Service: ? 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 MC message sent. Reason for Outreach Medicaid OB/Peds Care Gaps due: N/A Patient Contacted: Unable or unnecessary to reach patient: Unable to reach patient Unable to leave message [employer] message sent Navigation Signature: Stefanie Ocampo MA February 01, 2025 11:45 AM [facility] 02-01-2025 Note Patient Outreach (NE TNAV) GIANNI BENTLEY ([id number]) 1990 F Date Time Provider Department 02/01/25 STEFANIE DONG During your visit today, we recorded the following information about you: Stefanie Dong MA 02/01/2025 12:08 PM Signed [id number] HEALTH NAVIGATION OUTREACH Action/I 1st attempt: Called and unable to leave message to call back to 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 MC message sent. Reason for Outreach Medicaid OB/Peds Care Gaps due: N/A Patient Contacted: Unable or unnecessary to reach patient: Unable to reach patient Unable to leave message [employer] message sent Navigation Signature: Stefanie Ocampo MA [...] Encounter Status:Closed by STEFANIE DONG on 02/01/25 [facility] 01-12-2025 Note HNO ID: [id number] Author: SANA ALMODOVAR APRN.CNM Service: ? Author Type: Sap Fico Architect Type: Progress Notes Filed: 01/18/2025 10:49 Note Text: Nursing Staffing Coordinator offered: Patient declines. 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 [facility] 12-20-2024 Telephone encount er Note Records received from [facility] in [place]. Sent to medical records to scan into foodjunky for upcoming NOB on 01/15. [facility] 12-20-2024 Miscellaneous Notes Formattin g of this note might be different from the original. Records received from [facility] in [place]. Sent to medical records to scan into epic for upcoming NOB on 01/15. documented in this encounter [facility] 11-09-2024 Telephone encount er Note Patient has appt - closing encounter. [facility] 11-09-2024 Miscellaneous Notes Formattin g of this note might be different from the original. Patient has appt - closing encounter. PSS: Please contact patient to schedule New OB visit. Will need to be scheduled with bridge game director or doctor. Thank you. Delores Leblanc RN Call placed to patient to triage for new OB appt. Name and verified. [facility] NAEL? 02/15/2025 Gestational age? 25w1d Patient aware to sign up for My Chart so she can receive the "family day care provider" messages. What facility is she transferring from? [facility] in [place] When was her last office visit or [...] to transfer her OB care of to [facility]. She is currently a patient at [facility] in [place]. Please review and advise. Radha Saunders November 03, 2024 12:51 PM documented in this encounter [facility] 11-03-2024 Telephone encount er Note PSS: Please contact patient to schedule New OB visit. Will need to be scheduled with bridge game director or doctor. Thank you. Delores Leblanc RN [facility] 11-03-2024 Telephone encount er Note Call placed to patient to triage for new OB appt. Name and verified. [facility]. NAEL? 02/15/2025 Gestational age? 25w1d Patient aware to sign up for My Chart so she can receive the "family day care provider" messages. What facility is she transferring from? [facility] in [place] When was her last office visit or [...] would the patient like to establish in? [facility] Will route this encounter to the desired office. [facility] 11-03-2024 Telephone encount er Note Patient is 6 months and would like to transfer her OB care of to [facility]. She is currently a patient at [facility] in [place]. Please review and advise. Radha Saunders November 03, 2024 12:51 PM [facility] Summary Purpose Family History No Family [...] or prosecute any alcohol or drug abuse patient.[facility] the event this information is protected by the Federal Confidentiality of Alcohol and Drug Abuse Patient Records regulations: The Federal rules restrict any use of the information to criminally investigate or prosecute any alcohol or drug abuse patient.[facility] Reason for Visit (unrecogniz ed section and content) Reason Comments Applications Developer - Other Initial OB DANIELLE salcido Reason Comments Received Outside Medical Records INFORMATION SOURCE (unrecogn ized section and content) DATE CREATED AUTHOR 01/05/2025 [facility] DATE CREATED AUTHOR AUTHOR'S ORGANIZ ATION 02/10/2025 [facility] DATE CREATED AUTHOR AUTHOR'S ORGANIZ ATION 02/11/2025 [facility] FOR RECORDS PERTAINING TO PATIENTS WHO ARE [...] BE BASED ON THE PRIMARY CLINICAL RECORDS. [facility] [employer] [facility]. provides no warranty or guarantee of the accuracy or completeness of information in this document.
--- NOTE | 2025-02-11 20:01 | PCM.HP.OB ---
HPI - General General Date of Admission: 02/11/25 Date of Service: 02/11/25 Chief Complaint: Contractions HPI Narrative GIANNI PARKINSON, is a 34 F who presents with contractions. 4-5 cm intact. GBS negative Maternal Data Information Final NAEL: 02/15/25 Gestational age: 39+3 PFSH PFSH Allergy/AdvReac Type Severity Reaction Status Date / Time No Known Allergies Allergy Verified 02/11/25 19:46 History Elective abortions Hx Para 0 Spontaneous abortions Hx # Term Pregnancies Ectopic pregnancies Hx # Pregnancies Multiple births # of living children NST FHR Rate Baby A Baseline: 145 Variability:: Moderate Accelerations:: 15 x 15 Decelerations:: None NST Reactive:: Yes Uterine Activity:: q3-5 ROS Constitutional Constitutional: Denies fatigue, fever(s) or malaise Eyes Eyes: Denies change in vision ENT HEENT: Denies dizziness or headache(s) Cardiovascular Cardiovascular: Denies chest pain, dyspnea or lightheadedness Respiratory/Chest Respiratory/Chest: Denies cough or dyspnea Gastrointestinal Gastrointestinal: Denies change in bowel habits Genitourinary Genitourinary: Denies burning urination or genital lesions Integumentary Integumentary: Denies rash Neurologic Neurologic: Denies confusion, dizziness, headache(s), numbness or weakness Vital Signs Vital Signs Vital Signs: 02/11/25 19:36 02/11/25 19:36 Pulse Rate 118 H Blood Pressure 127/82 H BP Systolic 127 BP Diastolic 82 Weight Weight: 90.718 kg Body Mass Index (BMI) 34.3 Physical Exam Const alert and no apparent distress General Appearance: cooperative HEENT normocephalic Resp normal respiratory effort Cardio regular rate GI soft to palpation GI Narrative: gravid, nontender, appropriate for gestational age Extremity no calf tenderness General Extremity: edema Skin no wounds Rashes: No rashes noted Psych activity/motor behavior normal Assessment & Plan (1) 39 weeks gestation of : (2) Normal labor: PLAN: Plan Admit for labor. Epidural planned. GBS negative
[2025-02-11 20:12] LABS: Hematocrit 38.5 % (37-47); Hemoglobin 13.1 g/dL (12.0-15.0); Immature Granulocytes Count 0.110 X10^3/uL (0.0-0.0); Mean Corp Hgb Conc 34.0 g/dL (32-36); Mean Corpuscular Volume 91.4 fL (81-99); Mean Platelet Vol. 11.4 fl (6.2-12.0); NRBC Flagged by Analyzer 0 % (0-5); Platelet Count 306 K/mm3 (150-450); RBC Distribution Width CV 12.7 % (11.6-14.6); RBC Distribution Width SD 41.4 fl (35.1-43.9); Red Blood Count 4.21 M/mm3 (4.2-5.4); White Blood Count 18.3 K/mm3 (4.4-11.0)
[2025-02-11 20:40] LABS: Hepatitis C Antibody Nonreactive (Nonreactive); Syphilis Antibodies Nonreactive (Nonreactive)
[2025-02-12] VITALS (80 sets, daily range): BP systolic 117–176; BP diastolic 56–124; PULSE 90–133; RESP 16–18; TEMP 36.6–37.3; O2SAT 86–100
[2025-02-12] MEDS: Lactated Ringers 1,000 ML 999 ML IV (00:19)
[2025-02-12] MEDS: Lactated Ringers 1,000 ML 200 ML IV ×2 (01:20→06:24)
[2025-02-12] MEDS: fentaNYL-bupivacaine (epidural) 100 ML BAG EPIDURAL ×3 (01:35→11:13)
--- NOTE | 2025-02-12 05:32 | PCM.PN.OB ---
Subjective Subjective AROM for clear fluid. Epidural in place and working well. /-3. Minimal change. Pt has been resistant to interventions. After much discussion was agreeable to ROM. Would like to avoid pitocin. Objective Data Objective Data Vital Signs: Vital Signs Temp Pulse Resp BP Pulse Ox 97.9 F 100 16 120/56 L 100 02/12/25 01:28 02/12/25 03:11 02/12/25 01:28 02/12/25 03:11 02/12/25 01:31 Weight: 90.718 kg Body Mass Index (BMI) 34.3 Intake & Output: Intake and Output for Last 24 Hours 02/10/25 02/11/25 02/12/25 23:59 23:59 23:59 Intake Total 1000 / 1000 Balance 1000 / 1000 Lab / Micro Data 02/11/25 19:50 Labs: Laboratory Results - last 24 hr 02/11/25 19:50: WBC 18.3 H, RBC 4.21, Hgb 13.1, Hct 38.5, MCV 91.4, MCH 31.1, MCHC 34.0, RDW Std Deviation 41.4, RDW Coeff of Fei 12.7, Plt Count 306, MPV 11.4, Immature Gran % (Auto) 0.600, Neut % (Auto) 82.8 H, Lymph % (Auto) 9.2 L, [place] % (Auto) 7.1, Eos % (Auto) 0.2, Baso % (Auto) 0.1, Absolute Neuts (auto) 15.2 H, Absolute Lymphs (auto) 1.68, Nucleated RBC % 0, Syphilis Total Ab Nonreactive, Hepatitis C Antibody Nonreactive, Blood Type B POSITIVE, Antibody Screen NEGATIVE NST FHR Rate Baby A Baseline: 130 Variability:: Moderate Accelerations:: 15 x 15 Decelerations:: None FHR Category:: Category I Uterine Activity:: q2-5 Assessment & Plan (1) Normal labor: (2) 39 weeks gestation of : PLAN: Plan expectant management. Pt aware Pitocin may be needed
[2025-02-12] MEDS: LACTATED RINGERS 500 ML 999 ML IV ×2 (06:55→22:35)
--- NOTE | 2025-02-12 12:13 | PCM.PN.BLA ---
Progress Note pt seen at bedside, pushing with contractions. continue pushing at this time. Pelvis feels adequate- descent appreciated with efforts.
--- NOTE | 2025-02-12 12:55 | PCM.PN.BLA ---
Progress Note patient pushing with good maternal efforts. head +2 with caput noted. Feels OP position.
[2025-02-12] MEDS: Oxytocin 15 Units/NS 250ml 15 UNITS/250 ML IV.SOLN 2 UNITS IV (13:42)
--- NOTE | 2025-02-12 14:26 | EX.PCM.OBVAG ---
Vaginal Delivery Maternal Presentation Maternal Presentation: Active Labor Vaginal Delivery Information Procedure Performed: Spontaneous Vaginal Delivery Surgeon/Practitioner: Loli Martines Date of Procedure: 02/12/25 Pre-Procedure Diagnosis: 39 weeks, obesity in , Post-Procedure Diagnosis: same, live male infant Type of anesthesia: Epidural Estimated Blood Loss: 50 Time of Delivery: 14:11 Findings Description of procedure: Patient progressed to fully dilated. Was pushing for approximately 4 hours and 15 minutes. She had good maternal pushing efforts which delivered the head followed by the anterior posterior shoulder without delay and the rest the infant's body. Infant was placed on the mother's chest cord was clamped and cut after approximately 30 seconds at that time Cord was clamped and cut by the father and the baby was taken to the [facility] for further evaluation and resuscitation efforts. This time IM Pitocin was given placenta was then delivered intact without complication. Arterial and venous gases were obtained. Inspection of the vagina and perineum revealed no lacerations. Fundus was firm. Presentation: Vertex Amniotic Membrane Rupture Type: Artificial Amniotic Fluid Description: Clear Placental Delivery Description: Expressed Placenta Disposition: [facility] Specimen collected: No Cord Vessel Description: 3 Vessels Cord Entanglement: None Cord Gases: ABG and VBG Infant A Gender: Male (1 minute): 6 (5 minute): 8 Delayed Cord Clamping: No [place] Driver inspector and clerk: No Post Vaginal Deli Medications given after delivery: IV Pitocin and IM Pitocin Episiotomy Description: None Laceration: None Complication Complications: No
[2025-02-13 03:38] VITALS: BP 121/86; PULSE 95; RESP 14; TEMP 36.3; O2SAT 96
[2025-02-13 08:04] VITALS: BP 122/83; PULSE 92; RESP 16; TEMP 36.2
--- NOTE | 2025-02-13 08:36 | PCM.PN.OB ---
Subjective Subjective Denies complaints Objective Data Objective Data Vital Signs: Vital Signs Temp Pulse Resp BP Pulse Ox O2 Del Method 97.1 F L 92 16 122/83 H 96 Room Air 02/13/25 08:04 02/13/25 08:04 02/13/25 08:04 02/13/25 08:04 02/13/25 03:38 02/13/25 03:38 Oxygen Delivery Method Room Air Weight: 200 lb Body Mass Index (BMI) 34.3 Intake & Output: Intake and Output for Last 24 Hours 02/11/25 02/12/25 02/13/25 23:59 23:59 23:59 Intake Total 4250.0 / 4250.0 Output Total 650 / 650 250 / 250 Balance 3600.0 / 3600.0 -250 / -250 Lab / Micro Data 02/11/25 19:50 Physical Exam Const alert, oriented x3 and no apparent distress HEENT normocephalic GI soft to palpation, non-tender and non-distended GI Narrative: fundus firm, mid & below umbilicus Extremity normal to inspection and no calf tenderness Assessment & Plan (1) Vaginal delivery: COMMENT: PPD#1 PLAN: Plan D/c home later today per patient request
--- NOTE | 2025-02-13 08:38 | PCM.DC.SUM ---
Providers Date of Admission: 02/11/25 Primary Care Physician: Olga Primary Care Phys Reason For Visit: VAGINAL DELIVERY Diagnosis Discharge Diagnosis (1) Vaginal delivery: Status: Acute Code(s): O80 - Encounter for full-term uncomplicated delivery Plan D/c home later today per patient request Medications at Discharge Home Medications acetaminophen 500 mg tablet 1,000 mg (2 x 500 mg) PO Q6H PRN PRN Pain 1-10 Or Fever #0 tabs 02/13/25 Hospital Course Operations None Procedures None Summary of Care Provided Minutes Spent on Discharge: 15 Weight / BMI Weight Weight: 200 lb Body Mass Index (BMI) 34.3 ABG / Lab / Microbiology Data 02/11/25 19:50 D/C Instructions Discharge Activity: May Shower May resume sexual activity in: 6 weeks Weight Bearing Status: Weight bearing as tolerated Call your doctor if you observe: Fever of 101 or Higher, Coldness, Increased Pain, Change in Color, Inability to urinate, Inability to have a bowel movement, Using more than 1 pad per hour, Shortness of breath, Dizziness, Fainting spells, Chest pain, Increased palpitations (irregular heartbeat), Calf discomfort and Uncontrolled pain DC O2, CPAP, BIPAP Needs Home O2 Discharge instructions: No Please Follow Up With: Magdy Hdz MD When: Follow up in 2 and 6 weeks for visits. Meaningful Use Info Meaningful Use Meaningful Use Diagnoses (Choose all that apply): None applicable Discharge Plan Admission Admit Date/Time: 02/11/25 19:47 Primary Reason for Your Visit: vaginal delivery Attending Provider: Loli Martines Primary Care Provider: Care Physician,Olga Primary Discharge Orders/Prescriptions Prescriptions: New acetaminophen 500 mg Tablet 1,000 mg PO Q6H PRN PRN (Reason: Pain 1-10 Or Fever) Qty: 0 0RF Referrals / Follow Up: Care Physician,No Primary [Primary Care Provider, Medical] Disposition Disposition (needs filled in before D/C Order can be placed): Home, Self Care
[2025-02-13 12:39] VITALS: BP 124/87; PULSE 87; RESP 16; TEMP 36.2
[2025-02-13 17:00] VITALS: BP 115/78; PULSE 80; RESP 16; TEMP 36.6
--- NOTE | 2025-02-15 08:03 | CASEMGMT ---
Social Work Assessment Labor and Delivery Unit Patient Address: [address] [place] [address] [place] [address] Phone number: [phone] Date of Referral: 02/12/25 Time of Referral: 1828 Referred By: Dr. Branch Date of Intervention: 02/13/25 Time of Intervention: 1100, throughout day Reason for Referral: "limited support" Sw completed chart review and also spoke to bedside nurse regarding concerns. Sw presented to bedside and introduced self to mother of baby, YAMILA Marina. Sw saw that there were two other women (visitors) present and informed MOB that she could come back at another time to complete assessment. MOB stated that the women present were not visitors, but "they are here the whole time, it is okay for you to come in now and do the assessment". Sw presented to bedside and explained reason for sw involvement and completed assessment. History obtained from: medical records, MOB, grandmothers also contributed from time to time throughout conversation. Household composition: Currently residing in the home is MOB and father of baby, NAVNEET Blank (40 y/o). Maternal grandmother resides in [place] and paternal grandmother resides in [place]. MOB denies any issues or concerns with their home, stating that it is safe and secure. Patient's parent/guardian status: MOB states that she was residing in [place] and FOB is from [place] and they met each other on [employer] dating shanice. They dated for some time and eventually MOB moved to [place] to live with YOJANA. They have been together for 2 years. This is the first baby for both parents. - Harika was informed by labor and delivery nurse that during labor FOWoodrow was not supportive towards MOB. Labor nurse reported that FOWoodrow slept in his vehicle throughout the entire night while CARIN was laboring, and then presented to bedside in the morning. During labor he left the room every ten minutes to go smoke. There were times during labor when he asked "do I need to be here for this". MOB was in a lot of pain when an epidural was brought up, and FOWoodrow told MOB "You don't need an epidural, and youre not getting one, my mom didn't have one, youre not getting one". Bedside RN also told harika that OBGYN provider also informed parents that if CARIN's labor does not progress that she may require a , and at the mention of a YOJANA stated "Youre not having a and youre not getting an epidural". - CARIN did consent to an epidural and this helped her labor to progress to where she was complete and able to start pushing. Medical History: CARIN is 34 year old female who is 1, para 0- now 1 following labor and delivery. CARIN received routine care during labor with an OBGYN in [place] beginning in first trimester, and then presented to [place] to deliver baby. CARIN delivered baby via vaginal delivery on 02/12/25 at 39 weeks gestation. Baby boy, named Kiesha Ward, was born weighing 7lb 1oz and had apgars of 6 and 8 at one and five minutes of life, respectfully. CARIN is breast feeding and states that she is still needing some guidance with . Baby will be followed by [facility] in [place]. CARIN had not yet made a appointment and was planning on discharge today, sw encouraged her to make appointment with the office. Educational Status: CARIN states that both parents graduated from high school, and both parents have some college education but no degree. No issues with reading, learning or comprehension. 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 CARIN was previously working at [employer], however she states that she is not planning on returning to work following her maternity leave. Supplies: All necessary baby supplies obtained, including: car seat, safe sleep space, clothes, diapers and wipes. Childcare/Caregiver(s): CARIN will be the primary caregiver to baby along with YOJANA when he is not working. Transportation: Both parents have their drivers license and have reliable means of transportation, no barriers. Programs/Agencies Involved: CARIN is not connected to any community resources that provide her with financial assistance. Harika provided CARIN with resources and specific instructions on how to get connected to Medicaid insurance and WIC. Children Services/Legal Issues: No prior children services involvement, no issues or concerns warranting referral to be made at this time. Behavioral Health Issues: Mental Health History: CARIN states that YOJANA has been diagnosed with OCD. When asked what his obsessive tendencies are, CARIN states that he gets obsessive with things being in certain places and likes the house to be clean. CARIN states that he does not get upset or mad if things are out of place, but just puts them back. CARIN reports that she has been diagnosed with depression and generalized anxiety disorder. She was previously prescribed medication for 12 years, but stopped taking it 4 months before getting with baby. CARIN states that she felt really good during her , she was not anxious or overwhelmed. CARIN says that now that baby is her she feels good, she is just getting used to having a baby to get used to caring for. Substance Use History: CARIN denies substance use prior to and during . Family History: Paternal grandma reports that there is alcohol abuse on their side of the family, along with history of depression. Drug Screens: No drug screens observed while completing chart review. documentation from outside agency does not indicate otherwise toxicology screens being completed as well. Family/Social Stressors: CARIN expresses concerns that she has accumulated some debt, and was informed by a social work faculty member at [facility] that she would be given some resources on places that would be able to help her with this. Sw stated that she would look up some resources that are local to her and would bring them to her room later in the day. MOB expressed understanding. Support Systems: CARIN states that FOWoodrow would be her biggest support person, along with some of her friends who continue to reside in [place]. MOB states that the grandmothers are also considered supports, but they live out of state so they are supportive over the phone. - Sw brought up the topic of baby blues and depression at this point, due to MOB's mental health history and due to the concerns expressed by labor and delivery nurse/s. - Sw educated MOB on the signs and symptoms of baby blues and mood and anxiety disorders for MOB to be on the lookout for during this first year . Sw informed CARIN that she is more at risk for experiencing symptoms due to her mental health history. Sw also explained to MOB that sw is concerns that MOB has limited supports in place, due to the grandma's living out of state, along with her close friends also living in [place]. MOB stated that FOB is her support person and would be able to support her if she were struggling. At that time sw asked if she could be honest with MOB and bring up a specific concern that sw has. Sw explained to MOB that some concerns were brought to sw attention that FOB had made some statements during MOB's labor that were not very supportive and so it is this sw'ers concern that if MOB were to come to him at any point in time during this journey, and were to express some feelings of , that he would be dismissive of her feelings and would not help her. At this statement, paternal grandma was offended, and stated that FOB has been very attentive to MOB, and to baby since baby has been born. Sw stated that, that is great, sw hopes that FOB has in fact been supportive, because that is all that we would ask of a support person. Paternal grandma asked what the specific concern was regarding. Sw stated that there were several options that were brought up during MOB's labor, such as an epidural and possibly a if the OBGYN felt that was necessary, and FOB was very resistant to allowing those interventions. Paternal grandma reported that the parents had a plan prior to delivery and he knew that MOB could do it without an epidural because that is what she wanted. Sw stated that there are times when medically those interventions are required to help labor progress, or if it is medically in the best interest of the baby if that is what the OBGYN is recommending. Sw explained that staff were just concerns that the way FOB behaved in those moments where MOB needed him to be supportive, he was not. Sw explained that the ultimate goal of any delivery is a healthy baby and a healthy mom, and thankfully that is the outcome that MOB and FOB got at the end of this labor and delivery experience. Sw attempted to smooth over the conversation, and apologized if she offended them, however explained that as a mental health professional, sw wants to ensure that MOB is leaving the hospital with the most beneficial supports in place, especially as a first time mom who is at risk for struggling with symptoms. Depression/Shaken Baby/Safe Sleeping: Sw educated MOB on ABCs of safe sleep and shaken baby prevention. MOB expressed understanding. . ASSESSMENT: MOB and baby admitted following labor and delivery of . MOB has mental health history of depression and generalized anxiety disorder. Concerns expressed to social work faculty member that FOB was not supportive to MOB throughout labor. When sw attempted to discuss these concerns with MOB she was more understanding than the grandmothers that were in the room with her. Sw did attempt to have this conversation with MOB alone, however she expressed wanting to have the grandmothers with her. MOB is living with FOB, they are not and this is first baby for both of them. MOB states that both of them are very excited to be parents and have been waiting for this for a long time. Although sw expressed concerns to MOB about FOB not being supportive, MOB repeatedly stated that he is her biggest support, and she believes that he will help her post discharge and throughout this journey. MOB has obtained all necessary baby items for baby. While meeting with MOB, she was observed to be sitting on bed comfortably and feeding baby throughout conversation. MOB seemed somewhat uncertain regarding feeding baby given it had not been the 2-3 hour arnie since he had last eaten, but yet was appearing to be hungry. Sw encouraged MOB to feed baby, and then to follow up with again prior to discharge to ask any questions that she may have. PLAN: No other services requested or indicated. MOB and baby to be discharged when medically ready. Parents were provided literature regarding: signs and symptoms of baby blues and mood and anxiety disorders, Help Me Grow, shaken baby prevention, ABCs of safe sleep and a list of county resources that are available for them should any needs present themselves. Gillian Tomlinson, DEER FARMER, STRATEGY LEAD
== END 2025-02-13 19:10 | disposition home or self-care (01) | DRG 807 ==
LOC: WPOUT 19:52 → WP 19:52
PROVIDERS: Obstetrics & Gynecology; Admitting Provider Obstetrics & Gynecology; Referring Provider Obstetrics & Gynecology; Visit Provider Obstetrics & Gynecology
DX: O99.214 Obesity complicating childbirth (principal); Z37.0 Single live birth; Z3A.39 39 weeks gestation of pregnancy
CPT/HCPCS: 59025; 59050; 85025; 86780; 86803; 86850; 86900; 86901; 99221; G0378; J2405